=== PATIENT | male | born 1945 | race Caucasian/White ===

== ENCOUNTER 2019-04-08 00:15 | Inpatient (IN) | payer MEDICARE ==
[2019-04-08] MEDS ORDERED: hydrALAZINE 20 MG/ML VIAL SLOW IVP PRN (00:41)
[2019-04-08] MEDS ORDERED: Labetalol HCl 100 MG/20 ML VIAL SLOW IVP PRN (00:41)
[2019-04-08] MEDS ORDERED: Senokot S 8.6-50 MG TAB PO PRN (00:41)
[2019-04-08] MEDS ORDERED: HumaLOG 300 UNITS/3 ML VIAL SC PRN (00:46)
[2019-04-08] MEDS ORDERED: Dextrose 5% in Water 1,000 ML IV PRN (00:46)
[2019-04-08] MEDS ORDERED: Dextrose 50% Abboject 50 ML SYRINGE SLOW IVP PRN (00:46)
[2019-04-08] MEDS ORDERED: Aspirin 325 MG TAB PO SCH (01:00)
[2019-04-08] MEDS ORDERED: Clopidogrel Bisulfate 75 MG TAB PO SCH (01:00)
--- NOTE | 2019-04-08 02:03 | HP ---
PRESENTING COMPLAINT: Right sided arm and leg weakness. HISTORY OF PRESENT ILLNESS: Mr. Anisha Krishnan is a 73-year-old male with history of hypertension, SVT status post ablation 15 years ago, recent negative echocardiogram and stress test, who developed paresthesia and heaviness of the right leg area this morning about 15 hours before presentation. Symptoms initially resolved. The patient also noted he had difficulties with using his right arm to put the numbers in his phone. He was able to manage for most part of the day without worsening of the symptoms, but again continued to have worsening of symptoms this evening and presented to the ED. He denies any loss of consciousness, headache, or dizziness. He states his normal blood pressure normally runs in the 140s to 150s and was unchanged today. He had a CT done at an outside facility today with findings of incomplete stenoses with blockage of the anterior circulation. He was sent here for further management. The patient denies any weakness now . PAST MEDICAL HISTORY: Significant for hypertension, hyperlipidemia, and history of SVT status post ablation 15 years ago and history of prediabetes mellitus with recent hemoglobin A1c of 6.4. ALLERGIES: NO KNOWN DRUG ALLERGIES. FAMILY HISTORY: Significant for mother with history of CVA. SOCIAL HISTORY: The patient is a former smoker, quit about 30 years ago. No history of alcohol or illicit drug use. Fully functional at baseline. Resides in community with the . PAST SURGICAL HISTORY: Include cataract extraction as well as ablation of SVT. REVIEW OF SYSTEMS: System review x14 negative except as mentioned above. HOME MEDICATIONS: See full medication list. Awaiting confirmation in JUN. PHYSICAL EXAMINATION: VITAL SIGNS: Blood pressure of 166/70, pulse of 76, respiratory rate of 18, temperature afebrile, O2 saturation 96 on room air. GENERAL: Slightly overweight elderly male, not in any distress. HEENT: Head is atraumatic, normocephalic. The patient is typing numbers into his phone when I walked into the room. Pupils are equal and reactive to light. Anicteric. No facial asymmetry. No facial droop. Moist oral mucosa. NECK: No JVD. No carotid bruit. RESPIRATORY: Good air entry. No crepitation. CARDIOVASCULAR: S1, S2. Rate and rhythm regular. No murmur. GI: Abdomen full, soft. Bowel sounds positive. No organomegaly. EXTREMITIES: No pedal edema. No calf tenderness. NEURO: The patient is alert, conversant. Cranial nerves 2 through 12 grossly intact. Power is 5/5 in all extremities with no asymmetry. Deep tender reflexes equivocal bilaterally. No pronator drift elicited based on finger to nose as well as finger pointing was normal with this right arm, but slight tremors at precision point. LABORATORY DATA: Creatinine 1.75, glucose 254, potassium 4.0, hemoglobin 14.8, platelets 219. INR and PT normal. Images from office show CT of the brain as well as CT of the [place] done, full report pending. IMPRESSION: 1. Transient ischemic attack with mild cerebrovascular accident. 2. Hypertension. 3. Hyperlipidemia. 4. Diabetes mellitus, diet controlled. PLAN: We will admit the patient to the stroke unit. We will consult Neurology as well as Neurosurgery in a.m. We will obtain echocardiogram as well as carotid Doppler. Follow full results of CTA. We will schedule patient for MRI in the a.m. since CT of the head shows no acute infarct and CTA with area of reduced stenosis, would defer intervention of nonocclusive stenosis area to Neurology. We will start the patient on aspirin and Plavix at this time. We will also start Lipitor for presumed hyperlipidemia. Continue home regimen with lisinopril and fenofibrate. We will consult Nephrology for elevated creatinine. We will give Lovenox for DVT prophylaxis. The patient is currently full code. scar. We will consult PT and OT as well as Case Management for DC planning. Job ID: [id number]
[2019-04-08 02:32] VITALS: BMI 31.4
[2019-04-08 05:20] LABS: Cardiac Risk 4.7 (Less than 4.5)
--- NOTE | 2019-04-08 07:33 | ULT ---
US Carotid Doppler STANDARD History: Right-sided weakness. Hypertension. Comparison: None. Findings: Antegrade flow both vertebral arteries. No elevated peak systolic velocities within the int ernal carotid arteries. Impression: Findings and impression are concordant with the preliminary report.
[2019-04-08 08:23] LABS: Anion Gap 12 mmol/L (10-20); BUN (Urea Nitrogen) 17 mg/dL (8.4-25.7); Calc. Creatinine Clearance 76 mL/min (70-130); Calcium 8.7 mg/dL (7.8-10.44); Carbon Dioxide 20 mmol/L (23-31); Chloride 109 mmol/L (98-107); Estimated GFR-MDRD 55; Glucose 203 mg/dL (83-110); Potassium 3.7 mmol/L (3.5-5.1); Sodium 137 mmol/L (136-145)
[2019-04-08 08:45] LABS: Bacteria/HPF None Seen HPF (None Seen); Bilirubin Negative (Negative); Blood, Urine Negative (Negative); Clarity Clear (Clear); Glucose, Urine (Dipstick) Normal (Negative); Leukocyte Negative Leu/uL (Negative); Nitrite Negative (Negative); Protein, Urine (Dipstick) Negative (Neg-Trace); RBC/HPF 0-3 HPF (0-3); Squamous Epithelial None Seen HPF (0-3); Urobilinogen Normal mg/dL (Less than 2); WBC/HPF 0-3 HPF (0-3)
[2019-04-08] MEDS: Enoxaparin Sodium 30 MG/0.3 ML SYRINGE SC SCH (09:56)
[2019-04-08] MEDS: Famotidine 20 MG TAB PO SCH (09:56)
--- NOTE | 2019-04-08 10:07 | MRI ---
MRI BRAIN NONCONTRAST: DATE: 04/08/19 TIME: 0900 hours HISTORY: 73-year-old male with acute stroke. Right-sided weakness and abnormal gait, onset yesterday. COMPARISON: No prior MRIs. FINDINGS: There is a small focus of restricted diffusion involving the periventricular white matter abutting th e posterior body of the left lateral ventricle, measuring approximately 1 cm in size. There is associ ated minimal FLAIR hyperintensity in this location. Contiguous with this, there is milder subtle rest ricted diffusion located more inferiorly and more laterally at the posterior aspect of the left basal ganglia and posterior limb of left internal capsule, also with subtle, faint FLAIR hyperintensity. There are mild chronic ischemic white matter changes in the bilateral periventricular and deep cerebr al white matter, and also in the melva. There is a tiny old lacunar infarction in the right side of th e melva. No obstructive hydrocephalus, recent or remote intra-axial hemorrhage, mass effect, midline shift, or extra-axial fluid collection. Flow-voids are grossly maintained in the major arteries of the [place]. IMPRESSION: 1. Evidence for small acute infarction in the posterior aspect of the left corpus striatum. 2. Tiny old brainstem lacunar infarction at right side of melva. 3. Mild chronic ischemic white matter changes. JN Thierry POS: CET
--- NOTE | 2019-04-08 13:35 | CON ---
DATE OF CONSULTATION: 04/08/2019 CONSULTING PHYSICIAN: Hospitalist Service. IMPRESSION: 1. Probable lacunar stroke with minor right-sided weakness. 2. Aspirin failure. 3. Diabetes. 4. Hypertension. PLAN: 1. Add Plavix 75 mg per day. 2. Outpatient followup. HISTORY OF PRESENT ILLNESS: Mr. Lancaster is a 73-year-old gentleman, who came in with complaints of subtle weakness of the right hand and leg, started yesterday morning. There was no associated numbness. He denied having any slurred speech or difficulty swallowing. His symptoms improved a bit by yesterday evening. He was admitted for evaluation. A CT scan of the brain was unremarkable. He had a carotid Doppler study, which I reviewed and appears clear. CT angiogram of the head was also performed and the results are pending. He denies a history of any prior stroke symptoms. He is without any complaints of headache, nausea, vomiting, vertigo, double vision, blurred vision, or transient vision loss. He has no cardiac history other than an SVT. PAST MEDICAL HISTORY: 1. Hypertension. 2. Borderline diabetes. MEDICATION LIST: Reviewed. SOCIAL HISTORY: No tobacco use. REVIEW OF SYSTEMS: Ten-system review of systems is otherwise negative. ALLERGIES: NONE. PHYSICAL EXAMINATION: GENERAL: He is a healthy-appearing elderly gentleman, in no acute distress. VITAL SIGNS: Blood pressure 170/79, pulse 65, respirations 20, and temperature 97.9. HEENT: Pupils equal and reactive. Conjunctivae clear. Oropharynx clear. NECK: Supple. EXTREMITIES: No cyanosis, clubbing, or edema. NEUROLOGIC: He is alert and appropriate. His speech is fluent and clear. Cranial nerves are intact throughout. Motor exam showed good strength bilaterally. There is no fix or drift. No tremor or dysmetria was noted. Sensation was intact to touch. He could walk independently. LABORATORY STUDIES: Lipid ratio was 4.7. SUMMARY: A 73-year-old gentleman with a minor neurologic deficit on the right side, consistent with a lacunar stroke. I would add Plavix. His workup will be completed today and can be discharged at your discretion. Job ID: [id number]
[2019-04-08] MEDS: HumaLOG 300 UNITS/3 ML VIAL SC PRN ×2 (13:36→17:31)
[2019-04-08] MEDS: Aspirin 325 mg Enteric Coated Tablet PO SCH (13:37)
[2019-04-08] MEDS: Clopidogrel Bisulfate 75 MG TAB PO SCH (13:39)
--- NOTE | 2019-04-08 14:47 | PDOC.HOSPP ---
- Subjective Subjective: Doing ok. He has been up and around with PT. Still a little unsteady, but does not specifically feel weeks. Had a little issue with using his right hand for utensils, but seems to be better. - Objective Vital Signs & Weight: Vital Signs (12 hours) Temp Pulse Pulse Resp BP BP Pulse Ox 04/08/19 11:00 98.0 F 66 14 146/70 H 93 L 04/08/19 09:50 148/73 H 04/08/19 08:07 62 157/71 H 04/08/19 07:55 97.8 F 66 14 157/71 H 95 Weight Weight 225 lb I&O: 04/07/19 04/08/19 04/09/19 06:59 06:59 06:59 Intake Total 440 Output Total 325 Balance -325 440 Result Diagrams: 04/08/19 04:40 Additional Labs: Accuchecks 04/08/19 04/08/19 11:39 06:15 POC Glucose 215 H 188 H Hospitalist ROS - Medication Medications: Active Medications Generic Name Dose Route Start Last Admin Trade Name Dominguezq PRN Reason Stop Dose Admin Aspirin 325 mg 04/08/19 09:00 04/08/19 13:37 Ecotrin PO 325 mg DAILY CHARLIE Administration Clopidogrel Bisulfate 75 mg 04/08/19 09:00 04/08/19 13:39 Plavix PO Not Given DAILY CHARLIE Enoxaparin Sodium 30 mg 04/08/19 09:00 04/08/19 09:56 Lovenox SC 30 mg 0900 CHARLIE Administration Famotidine 20 mg 04/08/19 09:00 04/08/19 09:56 Pepcid PO 20 mg DAILY CHARLIE Administration Insulin Human Lispro 0 units 04/08/19 13:27 04/08/19 13:36 Humalog SC 3 unit .MILD SLIDING SCALE PRN Administration MILD SLIDING SCALE Protocol Sodium Chloride 10 ml 04/08/19 00:41 04/08/19 09:57 Flush - Normal Saline IVF 10 ml PRN PRN Administration Saline Flush - Exam General Appearance: NAD, awake alert Heart: RRR, no murmur, no gallops, no rubs, normal peripheral pulses Respiratory: CTAB, no wheezes, no rales, no ronchi, normal chest expansion, no tachypnea, normal percussion Gastrointestinal: soft, non-tender, non-distended, normal bowel sounds, no palpable masses, no hepatomegaly, no splenomegaly, no bruit Extremities: no cyanosis, no clubbing, no edema Skin: normal turgor Neurological - other findings: Extremely small strength deficit RUE. Musculoskeletal: normal tone, normal strength, no muscle wasting Hosp A/P (1) CVA (cerebral vascular accident) Code(s): I63.9 - CEREBRAL INFARCTION, UNSPECIFIED Status: Acute (2) HLD (hyperlipidemia) Code(s): E78.5 - HYPERLIPIDEMIA, UNSPECIFIED Status: Acute (3) HTN (hypertension) Code(s): I10 - ESSENTIAL (PRIMARY) HYPERTENSION Status: Acute - Plan Doing well. Good prognosis for recovery. Had ASA and Plavix late last night. Repeating ASA today. Dr. Bazan indicated he recommends adding Plavix. Anticipate discharge in the morning on Atorvastatin, ASA 81 mg and Plavix 75 mg. He can do OP PT as needed.
--- NOTE | 2019-04-08 15:21 | CON ---
DATE OF CONSULTATION: HISTORY OF PRESENT ILLNESS: Mr. Lancaster is a 73-year-old white male, who was admitted for right-sided arm and leg weakness. He was said to have undergone a CT angio and it showed no significant carotid artery stenosis. He has a scheduled MRA/MRI of the head. Reading the note by the hospitalist, it is reported that CT angio had an area of reduced stenosis. He has been started on aspirin and Plavix. He was also initially noted to have an elevated creatinine of 1.75 mg%. I did recheck the creatinine this morning, it is much improved. His right-sided weakness is actually much improved. REVIEW OF SYSTEMS: Positive for right-sided weakness. No nausea. No vomiting. No chest pain. No headache. No diplopia. No productive cough. No fever or chills. Appetite and energy level are fair. No hematochezia. No dysuria. No abdominal pain. HOME MEDICATIONS: Included the followin. Tolterodine 4 mg daily. 2. Lisinopril, dose unknown, one tablet daily. 3. Finasteride one tablet daily. 4. Fenofibrate 54 mg once a day. 5. Lexapro 10 mg once a day. 6. Aspirin 81 mg tablet once a day. Current hospital medications include: 1. Aspirin 325 mg once a day. 2. Atorvastatin 40 mg at bedtime. 3. Clopidogrel 75 mg once a day. 4. Lovenox 30 mg subcu daily. 5. Labetalol 20 mg IV q.1 p.r.n. 6. Hydralazine 10 mg IV q.4 p.r.n. PAST MEDICAL HISTORY: 1. Hypertension. 2. Hyperlipidemia. 3. BPH, status post SVT. 4. Right shoulder tendon injury. PAST SURGICAL HISTORY: Status post cardiac ablation, status post cardiac cath, status post right shoulder surgery, status post anal fistulectomy, status post colonoscopy, status post bilateral cataract surgery. SOCIAL HISTORY: The patient is , lives in [place], 3 children. Smoked for 15 years, one-fourth pack a day. Occasional beer. 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 Education, college graduate. No IV drug abuse. No blood transfusion. ALLERGIES: NONE. TRAUMA: Status post right collar bone fracture. IMMUNIZATION: Up-to-date. HOSPITALIZATIONS: Please see past medical history. PHYSICAL EXAMINATION: VITAL SIGNS: Blood pressure is 157/71, heart rate 66, respiratory rate 14, temperature 97.8, pulse ox 95%. GENERAL: Noted to be awake, alert, comfortable, not in overt distress. SKIN: Adequate turgor. HEENT: Pinkish conjunctivae, anicteric sclerae. NECK: No neck mass. No carotid bruits. No JVD. CHEST: No deformities. LUNGS: Clear breath sounds. No wheezing. No crackles. HEART: Normal sinus rhythm. No murmur. No gallops. No rubs. ABDOMEN: Globular, soft, nontender. No masses. EXTREMITIES: No edema, no deformities. NEUROLOGIC: Moving all extremities. No tremors. No asterixis. No ataxia. LABORATORY DATA: April 07, 2019, white count 5.3, hemoglobin 14.8. April 07, 2019, BUN 19, creatinine 1.75. April 08, 2019, sodium 137, potassium 3.7, chloride 109, carbon dioxide 20, BUN 17, creatinine 1.28, glucose 203, calcium 8.7. April 08, 2019, Carotid Doppler findings are within normal. CTA of the head with intravenous contrast shows the intracranial ICAs are patent with no significant stenosis-no occlusion, no aneurysm. Anterior cerebral artery shows no significant stenosis, no occlusion, no aneurysm. In the middle cerebral arteries, there is a patchy short-segment incomplete occlusion of the proximal left M2 segmental branches reflecting ? Of a small thromboemboli. Posterior cerebellar, basilar, and vertebral artery show no significant stenosis. ASSESSMENT AND PLAN: 1. Acute kidney injury - consider hemodynamically-mediated renal dysfunction. Please note, renal function is actually much improved with just observation and increasing p.o. intake with this patient. We will simply observe this patient. There is no indication for any dialytic intervention. 2. CTA of the brain showed finding of an incomplete occlusion of the proximal left M2 segmental branches -? of a small thromboemboli. Please note, an MRA/MRI has been ordered by the PCP. Continue supportive care. 3. Agree with current management. We will recheck basic metabolic profile and CBC in a.m. agree to hold off lisinopril. Job ID: [id number]
[2019-04-08] MEDS: Atorvastatin Calcium 40 MG TAB PO SCH (21:32)
[2019-04-09 04:51] LABS: #Eosinphils 0.2 thou/uL (0.0-0.7); #Lymphocytes 1.2 thou/uL (1.20-3.40); #Monocytes 0.6 thou/uL (0.11-0.59); #Neutrophils 3.7 thou/uL (1.40-6.50); %Basophils 0.6 % (0.0-1.0); %Eosinophils 3.6 % (0.0-10.0); %Lymphocytes 21.7 % (21.0-51.0); %Monocytes 9.9 % (0.0-10.0); %Neutrophils 64.1 % (42.0-75.0); Hemoglobin 15.1 g/dL (14.0-18.0); Mean Corpuscular HGB CONC 35.7 g/dL (32.0-36.0); Mean Corpuscular Hemoglobin 30.7 pg (27.0-31.0); Mean Corpuscular Volume 86.1 fL (78.0-98.0); Mean Platelet Volume 7.4 fL (7.4-10.4); Platelet Count 211 thou/uL (130-400); RBC Distribution Width 12.5 % (11.5-14.5); Red Blood Cell (RBC) Count 4.91 mill/uL (4.70-6.10); White Blood Cell (WBC) Count 5.7 thou/uL (4.8-10.8)
[2019-04-09 05:17] LABS: Anion Gap 12 mmol/L (10-20); BUN (Urea Nitrogen) 14 mg/dL (8.4-25.7); Calc. Creatinine Clearance 95 mL/min (70-130); Calcium 9.1 mg/dL (7.8-10.44); Carbon Dioxide 20 mmol/L (23-31); Chloride 110 mmol/L (98-107); Estimated GFR-MDRD 71; Glucose 167 mg/dL (83-110); Potassium 3.6 mmol/L (3.5-5.1); Sodium 138 mmol/L (136-145)
[2019-04-09] MEDS: HumaLOG 300 UNITS/3 ML VIAL SC PRN ×2 (06:45→11:30)
--- NOTE | 2019-04-09 08:33 | CT ---
Exam: CT brain PROVIDED CLINICAL HISTORY: Right-sided weakness COMPARISON: 04/07/2019 FINDINGS: The ventricular system is normal in size and morphology. No evidence for intracranial hemorrhage or mass effect. The extracranial soft tissues and osseous structures demonstrate no evidence for an acute abnormality. IMPRESSION: No evidence for intracranial hemorrhage or mass effect.
[2019-04-09] MEDS ORDERED: Lisinopril 20 MG TAB PO SCH (09:00)
[2019-04-09] MEDS: Aspirin 325 mg Enteric Coated Tablet PO SCH (09:24)
[2019-04-09] MEDS: Escitalopram Oxalate 10 mg Tablet PO SCH (09:25)
[2019-04-09] MEDS: Fenofibrate 48 MG TAB PO SCH (09:25)
[2019-04-09] MEDS: Finasteride 5 MG TAB PO SCH (09:25)
[2019-04-09] MEDS: Clopidogrel Bisulfate 75 MG TAB PO SCH (09:25)
[2019-04-09] MEDS: Trospium 20 MG TAB PO SCH ×2 (09:25→20:41)
[2019-04-09] MEDS: Enoxaparin Sodium 30 MG/0.3 ML SYRINGE SC SCH (09:25)
[2019-04-09] MEDS: Famotidine 20 MG TAB PO SCH (09:25)
[2019-04-09] MEDS ORDERED: Clopidogrel Bisulfate 75 MG TAB PO SCH (16:30)
--- NOTE | 2019-04-09 16:32 | PDOC.HOSPP ---
- Subjective Encounter Date: 04/09/19 Encounter Time: 16:31 Subjective: The patient states yesterday he did well with PT and was cleared to go home. Today however he reports worsening right sided weakness and slurred speech. He states he is unable to lift up his right arm today. He denies chest pain or short of breath. His symptoms worsen when he stands up. - Objective Vital Signs & Weight: Vital Signs (12 hours) Temp Pulse Resp BP Pulse Ox 04/09/19 15:48 98.0 F 70 16 181/80 H 94 L 04/09/19 11:43 98.8 F 65 18 157/77 H 93 L 04/09/19 07:54 98.0 F 65 16 168/77 H 94 L Weight Weight 225 lb I&O: 04/08/19 04/09/19 04/10/19 06:59 06:59 06:59 Intake Total 680 150 Output Total 325 Balance -325 680 150 Result Diagrams: 04/09/19 04:36 04/09/19 04:36 Additional Labs: Accuchecks 04/09/19 04/09/19 04/08/19 10:29 05:53 20:19 POC Glucose 233 H 169 H 178 H 04/08/19 17:15 POC Glucose 150 H Hospitalist ROS - Review of Systems Constitutional: denies: fever, chills Respiratory: denies: cough, shortness of breath Cardiovascular: denies: chest pain, palpitations, orthopnea Gastrointestinal: denies: nausea, vomiting, abdominal pain - Medication Medications: Active Medications Generic Name Dose Route Start Last Admin Trade Name Freq PRN Reason Stop Dose Admin Atorvastatin Calcium 40 mg 04/08/19 21:00 04/08/19 21:32 Lipitor PO 40 mg HS CHARLIE Administration Clopidogrel Bisulfate 75 mg 04/08/19 09:00 04/09/19 09:25 Plavix PO 75 mg DAILY CHARLIE Administration Escitalopram Oxalate 10 mg 04/09/19 09:00 04/09/19 09:25 Lexapro PO 10 mg DAILY CHARLIE Administration Famotidine 20 mg 04/08/19 09:00 04/09/19 09:25 Pepcid PO 20 mg DAILY CHARLIE Administration Fenofibrate 48 mg 04/09/19 09:00 04/09/19 09:25 Tricor PO 48 mg DAILY CHARLIE Administration Finasteride 5 mg 04/09/19 09:00 04/09/19 09:25 Proscar PO 5 mg DAILY CHARLIE Administration Insulin Human Lispro 0 units 04/08/19 13:27 04/09/19 11:30 Humalog SC 3 unit .MILD SLIDING SCALE PRN Administration MILD SLIDING SCALE Protocol Sodium Chloride 10 ml 04/08/19 00:41 04/08/19 09:57 Flush - Normal Saline IVF 10 ml PRN PRN Administration Saline Flush Trospium 20 mg 04/09/19 09:00 04/09/19 09:25 Trospium PO 20 mg BID CHARLIE Administration - Exam General Appearance: NAD, awake alert Eye: PERRL, anicteric sclera ENT: normocephalic atraumatic, no oropharyngeal lesions Neck: supple, symmetric, no JVD, no thyromegaly Heart: RRR, no murmur, no gallops, no rubs Respiratory: CTAB, no wheezes, no rales, no ronchi Gastrointestinal: soft, non-tender, non-distended Extremities: no cyanosis, no clubbing, no edema Skin: normal turgor, no lesions, no rashes Neurological - other findings: Right sided facial droop, weakness right facial muscle Musculoskeletal - other findings: Patient unable to lift up right leg or right arm, 5/5 strength LUE and LLE Psychiatric: normal affect, normal behavior, A&O x 3 Hosp A/P - Plan MRI brain: patient with acute infarct left corpus striatum, lacunar infarct right melva, chronic ischemic white matter changes Carotid doppler: no significant stenosis CTA: left M2 patchy filling CT brain: negative ECHO: mild LVH, EF 55-60%, moderate MR, mild TR This is a 73 year old male with past medical history of hypertension who 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 CTA showed left M2 patchy filling consistent with possible thromboemboli. Out of window for thrombectomy. ECHO showed no thrombus. Will repeat MRI brain - per neurology, treat blood pressure only if > 190. Hold lisinopril for now. - will administer extra loading dose of plavix 150 mg per neurology. Continue plavix 75 mg, aspirin will reduce to 81 mg - hold lovenox for now due to high BP - continue atorvastatin. Also on fenofibrate, will check LFTS and CK level Depression - lexapro BPH - finasteride DVT prophylaxis: hold due to high BP Code status: full code
--- NOTE | 2019-04-09 17:35 | MRI ---
MRI OF BRAIN PERFORMED WITHOUT CONTRAST ENHANCEMENT: 04/09/19 HISTORY: Right sided weakness. Unable to move right arm and legs. Slurred speech. Worsening symptoms. COMPARISON: Prior day's exam. There is motion artifact present. There is generalized ventricular and sulcal prominence. There is in creased T2 and FLAIR signal change within the white matter. The focus of restricted diffusion is now more prominent within the left periventricular white matter and posterior limb of the internal capsul e. No mass effect or hemorrhage. IMPRESSION: Fully minimal overall increase in prominence to the area of infarct in the left periventricular white matter. No hemorrhage or other findings. Incidental note is once again made of an old lacunar infarc t in the melva region. POS: VIRGILIO
[2019-04-09 19:33] LABS: ALT (SGPT) 12 U/L (8-55); AST (SGOT) 14 U/L (5-34); Albumin 4.1 g/dL (3.4-4.8); Alkaline Phosphatase 58 U/L (40-110); Bilirubin, Direct 0.3 mg/dL (0.1-0.3); Protein, Total 6.9 g/dL (5.8-8.1)
[2019-04-09 19:45] LABS: CK (CPK) 69 U/L (30-200)
[2019-04-09] MEDS: Atorvastatin Calcium 40 MG TAB PO SCH (20:41)
[2019-04-10 04:56] LABS: Hemoglobin 15.4 g/dL (14.0-18.0); Mean Corpuscular HGB CONC 35.3 g/dL (32.0-36.0); Mean Corpuscular Hemoglobin 30.8 pg (27.0-31.0); Mean Corpuscular Volume 87.1 fL (78.0-98.0); Mean Platelet Volume 7.2 fL (7.4-10.4); Platelet Count 199 thou/uL (130-400); RBC Distribution Width 12.5 % (11.5-14.5); Red Blood Cell (RBC) Count 5.01 mill/uL (4.70-6.10); White Blood Cell (WBC) Count 6.3 thou/uL (4.8-10.8)
[2019-04-10 05:17] LABS: ALT (SGPT) 11 U/L (8-55); AST (SGOT) 12 U/L (5-34); Albumin 3.9 g/dL (3.4-4.8); Alkaline Phosphatase 53 U/L (40-110); Anion Gap 14 mmol/L (10-20); BUN (Urea Nitrogen) 12 mg/dL (8.4-25.7); Bilirubin, Total 1.2 mg/dL (0.2-1.2); Calc. Creatinine Clearance 92 mL/min (70-130); Calcium 9.1 mg/dL (7.8-10.44); Carbon Dioxide 22 mmol/L (23-31); Chloride 108 mmol/L (98-107); Estimated GFR-MDRD 69; Globulin 2.7 g/dL (2.4-3.5); Glucose 154 mg/dL (83-110); Potassium 3.5 mmol/L (3.5-5.1); Protein, Total 6.6 g/dL (5.8-8.1); Sodium 140 mmol/L (136-145)
[2019-04-10] MEDS: Trospium 20 MG TAB PO SCH ×2 (08:42→20:49)
[2019-04-10] MEDS: Aspirin 81 mg Enteric Coated Tablet PO SCH (08:42)
[2019-04-10] MEDS: Finasteride 5 MG TAB PO SCH (08:42)
[2019-04-10] MEDS: Fenofibrate 48 MG TAB PO SCH (08:43)
[2019-04-10] MEDS: Escitalopram Oxalate 10 mg Tablet PO SCH (08:43)
[2019-04-10] MEDS: Clopidogrel Bisulfate 75 MG TAB PO SCH (08:43)
[2019-04-10] MEDS: Famotidine 20 MG TAB PO SCH ×2 (08:43→20:50)
[2019-04-10] MEDS ORDERED: Lisinopril 10 MG TAB PO SCH (09:30)
[2019-04-10 10:46] LABS: Hemoglobin A1c 7.1 % (4.0-6.0)
--- NOTE | 2019-04-10 11:03 | PDOC.HOSPP ---
- Subjective Encounter Date: 04/10/19 Encounter Time: 09:15 Subjective: The patient is doing better. Yesterday MRI showed evolving stroke involving internal capsule. Patient got loading dose of plavix. He says he is now able to move his right leg if he lays down, but still can't move his right arm much. His swallowing has improved some. He is taking small bites. - Objective Vital Signs & Weight: Vital Signs (12 hours) Temp Pulse Resp BP BP Pulse Ox 04/10/19 10:38 122/91 H 04/10/19 08:49 158/73 H 04/10/19 07:44 98 F 69 16 189/89 H 95 04/10/19 04:00 98.5 F 66 16 135/63 95 04/09/19 23:31 98.6 F 68 18 188/88 H 98 Weight Weight 225 lb I&O: 04/09/19 04/10/19 04/11/19 06:59 06:59 06:59 Intake Total 680 860 Output Total 200 Balance 680 660 Result Diagrams: 04/10/19 04:38 04/10/19 04:38 Additional Labs: Accuchecks 04/10/19 04/10/19 04/09/19 10:49 05:54 20:42 POC Glucose 166 H 153 H 134 H 04/09/19 17:04 POC Glucose 141 H Hospitalist ROS - Review of Systems Constitutional: denies: fever, chills ENT: denies: ear pain Respiratory: denies: cough, dry Cardiovascular: denies: chest pain Genitourinary: denies: dysuria - Medication Medications: Active Medications Generic Name Dose Route Start Last Admin Trade Name Destini PRN Reason Stop Dose Admin Aspirin 81 mg 04/10/19 09:00 04/10/19 08:42 Ecotrin PO 81 mg DAILY CHARLIE Administration Atorvastatin Calcium 40 mg 04/08/19 21:00 04/09/19 20:41 Lipitor PO 40 mg HS CHARLIE Administration Clopidogrel Bisulfate 75 mg 04/08/19 09:00 04/10/19 08:43 Plavix PO 75 mg DAILY CHARLIE Administration Escitalopram Oxalate 10 mg 04/09/19 09:00 04/10/19 08:43 Lexapro PO 10 mg DAILY CHARLIE Administration Famotidine 20 mg 04/10/19 09:00 04/10/19 08:43 Pepcid PO 20 mg BID CHARLIE Administration Fenofibrate 48 mg 04/09/19 09:00 04/10/19 08:43 Tricor PO 48 mg DAILY CHARLIE Administration Finasteride 5 mg 04/09/19 09:00 04/10/19 08:42 Proscar PO 5 mg DAILY CHARLIE Administration Insulin Human Lispro 0 units 04/08/19 13:27 04/09/19 11:30 Humalog SC 3 unit .MILD SLIDING SCALE PRN Administration MILD SLIDING SCALE Protocol Lisinopril 10 mg 04/10/19 09:30 04/10/19 10:38 Zestril PO 04/10/19 11:30 10 mg NOW CHARLIE Administration Sodium Chloride 10 ml 04/08/19 00:41 04/08/19 09:57 Flush - Normal Saline IVF 10 ml PRN PRN Administration Saline Flush Trospium 20 mg 04/09/19 09:00 04/10/19 08:42 Trospium PO 20 mg BID CHARLIE Administration - Exam General Appearance: NAD, awake alert Eye: PERRL, anicteric sclera ENT: normocephalic atraumatic, no oropharyngeal lesions Neck: supple, symmetric, no JVD, no thyromegaly Heart: RRR, no murmur, no gallops, no rubs Respiratory: CTAB, no wheezes, no rales, no ronchi Gastrointestinal: soft, non-tender, non-distended, normal bowel sounds Extremities: no cyanosis, no clubbing, no edema Skin: normal turgor, no lesions, no rashes Neurological: cranial nerve grossly intact, normal sensation to touch, facial droop Neurological - other findings: right facial droop, LUE/LLE 5/5, RUE 0/5, RLE 4/ 5 Musculoskeletal: normal tone, normal strength, no muscle wasting Psychiatric: normal affect, normal behavior, A&O x 3, oriented to person Hosp A/P - Plan MRI brain: patient with acute infarct left corpus striatum, lacunar infarct right melva, chronic ischemic white matter changes Carotid doppler: no significant stenosis CTA: left M2 patchy filling CT brain: negative ECHO: mild LVH, EF 55-60%, moderate MR, mild TR MRI Brain 04/09/19: minimal overall increase in prominence to area of infarct in left periventricular white matter and posterior limb of internal capsule This is a 73 year old male with past medical history of hypertension who 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 CTA showed left M2 patchy filling consistent with possible thromboemboli. Out of window for thrombectomy. ECHO showed no thrombus. Repeat MRI brain showed increase in prominence to area of infarct in left periventricular white matter and posterior limb of internal capsule - will start lisinopril 10 mg to keep BP < 160 - continue plavix 75 mg, aspirin 81 mg, atorvastatin. LDL 92 - LFTs and CK level normal - likely needs inpatient rehab. Appreciate PT/OT/Speech evaluation Type II diabetes - Hb A1C of 7 - continue insulin sliding scale - metformin on discharge Depression - lexapro BPH - finasteride DVT prophylaxis: ambulation, can start heparin SC Code status: full code
[2019-04-10] MEDS: HumaLOG 300 UNITS/3 ML VIAL SC PRN (13:56)
[2019-04-10] MEDS: Heparin 5,000 UNITS/ML VIAL SC SCH ×2 (15:40→20:50)
[2019-04-10] MEDS: Atorvastatin Calcium 40 MG TAB PO SCH (20:49)
[2019-04-11 05:29] LABS: Anion Gap 12 mmol/L (10-20); BUN (Urea Nitrogen) 15 mg/dL (8.4-25.7); Calc. Creatinine Clearance 92 mL/min (70-130); Carbon Dioxide 23 mmol/L (23-31); Chloride 108 mmol/L (98-107); Estimated GFR-MDRD 69; Glucose 146 mg/dL (83-110); Potassium 3.6 mmol/L (3.5-5.1); Sodium 139 mmol/L (136-145)
[2019-04-11] MEDS: Finasteride 5 MG TAB PO SCH (09:42)
[2019-04-11] MEDS: Famotidine 20 MG TAB PO SCH ×2 (09:42→20:52)
[2019-04-11] MEDS: Trospium 20 MG TAB PO SCH ×2 (09:42→20:52)
[2019-04-11] MEDS: Aspirin 81 mg Enteric Coated Tablet PO SCH (09:43)
[2019-04-11] MEDS: Lisinopril 10 MG TAB PO SCH (09:43)
[2019-04-11] MEDS: Escitalopram Oxalate 10 mg Tablet PO SCH (09:43)
[2019-04-11] MEDS: Heparin 5,000 UNITS/ML VIAL SC SCH ×3 (09:44→20:52)
[2019-04-11] MEDS: Fenofibrate 48 MG TAB PO SCH (09:44)
[2019-04-11] MEDS: Clopidogrel Bisulfate 75 MG TAB PO SCH (09:44)
[2019-04-11 13:10] LABS: ANA Symphony (Qualitative) Negative (Negative); ANA Symphony (Quantitative) 0.1 Ratio (< 0.7 Negative); dsDNA IgG Antibody Less than 0.5 IU/mL (<10 Negative)
--- NOTE | 2019-04-11 17:09 | PDOC.HOSPP ---
- Subjective Encounter Date: 04/11/19 Encounter Time: 14:00 Subjective: The patient states he is doing slightly better. His right leg he is able to move more than his right arm. He states his speech got slurred from talking too much to his family so he advised his family not to come today. He denies dizziness or headaches He is interested in rehab in the [facility]. - Objective Vital Signs & Weight: Vital Signs (12 hours) Temp Pulse Pulse Pulse Resp BP BP 04/11/19 15:31 98.6 F 75 18 04/11/19 15:12 83 75 192/86 H 04/11/19 11:52 98.8 F 72 18 04/11/19 09:43 152/67 H 04/11/19 09:40 74 152/67 H 04/11/19 07:37 99.0 F 75 18 BP BP Pulse Ox 04/11/19 15:31 176/77 H 99 04/11/19 15:12 176/77 H 04/11/19 11:52 139/67 96 04/11/19 09:43 04/11/19 09:40 04/11/19 07:37 149/70 H 96 Weight Weight 225 lb I&O: 04/10/19 04/11/19 04/12/19 06:59 06:59 06:59 Intake Total 860 640 480 Output Total 200 100 Balance 660 540 480 Result Diagrams: 04/10/19 04:38 04/11/19 04:52 Additional Labs: Accuchecks 04/11/19 04/11/19 04/10/19 10:27 05:40 20:21 POC Glucose 139 H 144 H 163 H 04/10/19 17:33 POC Glucose 125 H Hospitalist ROS - Review of Systems Constitutional: denies: fever, chills Eyes: denies: pain ENT: denies: ear pain Respiratory: denies: dry, pleuritic pain - Medication Medications: Active Medications Generic Name Dose Route Start Last Admin Trade Name Freq PRN Reason Stop Dose Admin Aspirin 81 mg 04/10/19 09:00 04/11/19 09:43 Ecotrin PO 81 mg DAILY CHARLIE Administration Atorvastatin Calcium 40 mg 04/08/19 21:00 04/10/19 20:49 Lipitor PO 40 mg HS CHARLIE Administration Clopidogrel Bisulfate 75 mg 04/08/19 09:00 04/11/19 09:44 Plavix PO 75 mg DAILY CHARLIE Administration Escitalopram Oxalate 10 mg 04/09/19 09:00 04/11/19 09:43 Lexapro PO 10 mg DAILY CHARLIE Administration Famotidine 20 mg 04/10/19 09:00 04/11/19 09:42 Pepcid PO 20 mg BID CHARLIE Administration Fenofibrate 48 mg 04/09/19 09:00 04/11/19 09:44 Tricor PO 48 mg DAILY CHARLIE Administration Finasteride 5 mg 04/09/19 09:00 04/11/19 09:42 Proscar PO 5 mg DAILY CHARLIE Administration Heparin Sodium (Porcine) 5,000 units 04/10/19 15:00 04/11/19 15:36 Heparin SC 5,000 units TID CHARLIE Administration Insulin Human Lispro 0 units 04/08/19 13:27 04/10/19 13:56 Humalog SC 2 unit .MILD SLIDING SCALE PRN Administration MILD SLIDING SCALE Protocol Lisinopril 10 mg 04/11/19 09:00 04/11/19 09:43 Zestril PO 10 mg DAILY CHARLIE Administration Sodium Chloride 10 ml 04/08/19 00:41 04/11/19 09:44 Flush - Normal Saline IVF 10 ml PRN PRN Administration Saline Flush Trospium 20 mg 04/09/19 09:00 04/11/19 09:42 Trospium PO 20 mg BID CHARLIE Administration - Exam General Appearance: NAD, awake alert Eye: PERRL, anicteric sclera ENT: normocephalic atraumatic, no oropharyngeal lesions Neck: supple, symmetric, no JVD, no thyromegaly Heart: RRR, no murmur, no gallops, no rubs Respiratory: CTAB, no wheezes, no rales, no ronchi Gastrointestinal: soft, non-tender, non-distended, normal bowel sounds Extremities: no cyanosis, no clubbing, no edema Skin: normal turgor, no lesions, no rashes Neurological: normal sensation to touch, no focal deficits, no new deficit, facial droop (right side), vision deficit Neurological - other findings: patient has 4/5 strength RLE, 0/5 strength RUE Musculoskeletal: normal tone, normal strength, no muscle wasting Psychiatric: normal affect, normal behavior, A&O x 3 Hosp A/P - Plan MRI brain: patient with acute infarct left corpus striatum, lacunar infarct right melva, chronic ischemic white matter changes Carotid doppler: no significant stenosis CTA: left M2 patchy filling CT brain: negative ECHO: mild LVH, EF 55-60%, moderate MR, mild TR MRI Brain 04/09/19: minimal overall increase in prominence to area of infarct in left periventricular white matter and posterior limb of internal capsule This is a 73 year old male with past medical history of hypertension who presented with acute stroke Acute Left corpus striatum stroke - CT head negative, MRI brain showed acute infarct left corpus striatum, repeat 04/09 showed slight increase in area of infarct - continue aspirin and plavix. Patient was given additional loading dose of plavix 150 mg on 04/09 - continue lisinopril 10 mg daily, add amlodipine 5 mg given BP still 170 - LDL 92, A1C 7, TSH normal - PT/OT/Speech following - referrals sent for rehab Type II diabetes - Hb A1C of 7 - continue insulin sliding scale - metformin on discharge Depression - lexapro BPH - finasteride Disposition: needs rehab DVT prophylaxis: heparin SC Code status: full code
[2019-04-11] MEDS ORDERED: Amlodipine 5 MG TAB PO SCH (17:30)
[2019-04-11] MEDS: Atorvastatin Calcium 40 MG TAB PO SCH (20:52)
[2019-04-12 04:50] LABS: Hemoglobin 15.2 g/dL (14.0-18.0); Mean Corpuscular HGB CONC 35.3 g/dL (32.0-36.0); Mean Corpuscular Hemoglobin 30.9 pg (27.0-31.0); Mean Corpuscular Volume 87.6 fL (78.0-98.0); Mean Platelet Volume 7.4 fL (7.4-10.4); Platelet Count 204 thou/uL (130-400); RBC Distribution Width 12.6 % (11.5-14.5); Red Blood Cell (RBC) Count 4.92 mill/uL (4.70-6.10); White Blood Cell (WBC) Count 5.9 thou/uL (4.8-10.8)
[2019-04-12 05:07] LABS: Anion Gap 11 mmol/L (10-20); BUN (Urea Nitrogen) 19 mg/dL (8.4-25.7); Calc. Creatinine Clearance 96 mL/min (70-130); Calcium 8.9 mg/dL (7.8-10.44); Carbon Dioxide 21 mmol/L (23-31); Chloride 109 mmol/L (98-107); Estimated GFR-MDRD 72; Glucose 145 mg/dL (83-110); Potassium 3.7 mmol/L (3.5-5.1); Sodium 137 mmol/L (136-145)
[2019-04-12] MEDS: HumaLOG 300 UNITS/3 ML VIAL SC PRN ×2 (06:19→12:07)
[2019-04-12] MEDS: Trospium 20 MG TAB PO SCH ×2 (09:29→20:55)
[2019-04-12] MEDS: Famotidine 20 MG TAB PO SCH ×2 (09:29→20:54)
[2019-04-12] MEDS: Aspirin 81 mg Enteric Coated Tablet PO SCH (09:29)
[2019-04-12] MEDS: Finasteride 5 MG TAB PO SCH (09:30)
[2019-04-12] MEDS: Lisinopril 10 MG TAB PO SCH (09:30)
[2019-04-12] MEDS: Escitalopram Oxalate 10 mg Tablet PO SCH (09:30)
[2019-04-12] MEDS: Amlodipine 5 MG TAB PO SCH (09:30)
[2019-04-12] MEDS: Fenofibrate 48 MG TAB PO SCH (09:30)
[2019-04-12] MEDS: Clopidogrel Bisulfate 75 MG TAB PO SCH (09:30)
[2019-04-12] MEDS: Heparin 5,000 UNITS/ML VIAL SC SCH ×3 (09:32→20:55)
[2019-04-12] MEDS: Cyclobenzaprine 10 MG TAB PO PRN (16:55)
[2019-04-12] MEDS ORDERED: Lidocaine 5% Patch TD SCH (17:00)
--- NOTE | 2019-04-12 19:07 | PDOC.HOSPP ---
- Subjective Encounter Date: 04/12/19 Encounter Time: 16:00 Subjective: The patient is doing better. He has muscle spasms in his right arm and leg that happen more at night. He is only able to move his right leg while laying down, but still can't lift up his right arm. Speech is better, does have some drooling on right face while eating No bed at rehab yet BP better controlled today - Objective Vital Signs & Weight: Vital Signs (12 hours) Temp Pulse Pulse Pulse Resp BP BP 04/12/19 15:45 98.4 F 78 14 04/12/19 11:49 98.0 F 78 14 04/12/19 09:50 81 71 152/76 H 04/12/19 09:30 68 124/61 04/12/19 07:49 98.5 F 68 12 BP BP Pulse Ox 04/12/19 15:45 129/59 L 96 04/12/19 11:49 145/69 H 95 04/12/19 09:50 149/70 H 04/12/19 09:30 04/12/19 07:49 113/59 L 95 Weight Weight 225 lb I&O: 04/11/19 04/12/19 04/13/19 06:59 06:59 06:59 Intake Total 640 1190 960 Output Total 100 650 Balance 540 540 960 Result Diagrams: 04/12/19 04:20 04/12/19 04:20 Additional Labs: Accuchecks 04/12/19 04/12/19 04/12/19 17:33 10:41 05:14 POC Glucose 135 H 172 H 170 H 04/11/19 21:07 POC Glucose 195 H Hospitalist ROS - Review of Systems Constitutional: denies: fever, chills Respiratory: denies: cough, dry, shortness of breath - Medication Medications: Active Medications Generic Name Dose Route Start Last Admin Trade Name Freq PRN Reason Stop Dose Admin Amlodipine Besylate 5 mg 04/12/19 09:00 04/12/19 09:30 Norvasc PO 5 mg DAILY CHARLIE Administration Aspirin 81 mg 04/10/19 09:00 04/12/19 09:29 Ecotrin PO 81 mg DAILY CHARLIE Administration Atorvastatin Calcium 40 mg 04/08/19 21:00 04/11/19 20:52 Lipitor PO 40 mg HS CHARLIE Administration Clopidogrel Bisulfate 75 mg 04/08/19 09:00 04/12/19 09:30 Plavix PO 75 mg DAILY CHARLIE Administration Cyclobenzaprine HCl 5 mg 04/12/19 16:15 04/12/19 16:55 Flexeril PO 5 mg BIDPRN PRN Administration Muscle Spasm Escitalopram Oxalate 10 mg 04/09/19 09:00 04/12/19 09:30 Lexapro PO 10 mg DAILY CHARLIE Administration Famotidine 20 mg 04/10/19 09:00 04/12/19 09:29 Pepcid PO 20 mg BID CHARLIE Administration Fenofibrate 48 mg 04/09/19 09:00 04/12/19 09:30 Tricor PO 48 mg DAILY CHARLIE Administration Finasteride 5 mg 04/09/19 09:00 04/12/19 09:30 Proscar PO 5 mg DAILY CHARLIE Administration Heparin Sodium (Porcine) 5,000 units 04/10/19 15:00 04/12/19 15:28 Heparin SC 5,000 units TID CHARLIE Administration Insulin Human Lispro 0 units 04/08/19 13:27 04/12/19 12:07 Humalog SC 2 unit .MILD SLIDING SCALE PRN Administration MILD SLIDING SCALE Protocol Lisinopril 10 mg 04/11/19 09:00 04/12/19 09:30 Zestril PO 10 mg DAILY CHARLIE Administration Sodium Chloride 10 ml 04/08/19 00:41 04/12/19 09:31 Flush - Normal Saline IVF 10 ml PRN PRN Administration Saline Flush Trospium 20 mg 04/09/19 09:00 04/12/19 09:29 Trospium PO 20 mg BID CHARLIE Administration - Exam General Appearance: NAD, awake alert Eye: PERRL, anicteric sclera ENT: normocephalic atraumatic, no oropharyngeal lesions Neck: supple, symmetric, no JVD, no thyromegaly Heart: RRR, no murmur, no gallops, no rubs Respiratory: CTAB, no wheezes, no rales, no ronchi Gastrointestinal: soft, non-tender, non-distended Extremities: no cyanosis, no clubbing, no edema Skin: normal turgor, no lesions, no rashes Neurological: cranial nerve grossly intact Neurological - other findings: right sided facial droop, RUE weakness, RLE weakness improved Musculoskeletal - other findings: RUE 0/5, RLE 4/5, LUE 5/5, LLE 5/5 Psychiatric: normal affect, normal behavior, A&O x 3 Hosp A/P - Plan MRI brain: patient with acute infarct left corpus striatum, lacunar infarct right melva, chronic ischemic white matter changes Carotid doppler: no significant stenosis CTA: left M2 patchy filling CT brain: negative ECHO: mild LVH, EF 55-60%, moderate MR, mild TR MRI Brain 04/09/19: minimal overall increase in prominence to area of infarct in left periventricular white matter and posterior limb of internal capsule This is a 73 year old male with past medical history of hypertension who presented with acute stroke Acute Left corpus striatum stroke - CT head negative, MRI brain showed acute infarct left corpus striatum, repeat 04/09 showed slight increase in area of infarct - continue aspirin and plavix. Patient was given additional loading dose of plavix 150 mg on 04/09 - continue lisinopril 10 mg daily, continue amlodipine 5 mg - LDL 92, A1C 7, TSH normal - PT/OT/Speech following - referrals sent for rehab #RIght leg spasms #Back pain - add flexeril 5 mg prn, tylenol prn - lidocaine patch daily - mag level low - Type II diabetes - Hb A1C of 7 - continue insulin sliding scale - metformin on discharge Depression - lexapro BPH - finasteride Disposition: needs rehab, awaiting bed DVT prophylaxis: heparin SC Code status: full code
[2019-04-12] MEDS: Acetaminophen 325 MG TAB PO PRN (20:54)
[2019-04-12] MEDS: Lidocaine 5% Patch TD SCH (20:55)
[2019-04-12] MEDS: Atorvastatin Calcium 40 MG TAB PO SCH (20:55)
[2019-04-13] MEDS: Acetaminophen 325 MG TAB PO PRN (09:38)
[2019-04-13] MEDS: Cyclobenzaprine 10 MG TAB PO PRN ×2 (09:39→22:19)
[2019-04-13] MEDS: Escitalopram Oxalate 10 mg Tablet PO SCH (09:40)
[2019-04-13] MEDS: Trospium 20 MG TAB PO SCH ×2 (09:40→22:20)
[2019-04-13] MEDS: Aspirin 81 mg Enteric Coated Tablet PO SCH (09:40)
[2019-04-13] MEDS: Famotidine 20 MG TAB PO SCH ×2 (09:40→22:19)
[2019-04-13] MEDS: Finasteride 5 MG TAB PO SCH (09:41)
[2019-04-13] MEDS: Lisinopril 10 MG TAB PO SCH (09:41)
[2019-04-13] MEDS: Clopidogrel Bisulfate 75 MG TAB PO SCH (09:42)
[2019-04-13] MEDS: Amlodipine 5 MG TAB PO SCH (09:42)
[2019-04-13] MEDS: Heparin 5,000 UNITS/ML VIAL SC SCH ×3 (09:43→22:19)
[2019-04-13] MEDS: Fenofibrate 48 MG TAB PO SCH (09:43)
[2019-04-13] MEDS: Lidocaine Patch Removal 1 EACH TOP SCH (09:45)
--- NOTE | 2019-04-13 17:23 | PDOC.HOSPP ---
- Subjective Encounter Date: 04/13/19 Encounter Time: 16:00 Subjective: The patient did better last night, was able to sleep better. Has some spasms this morning but thinks flexeril and lidocaine patch is helping. Had two loose stools today, he thinks from drinking artificial sweeteners. No abd pain, nausea or vomiting - Objective Vital Signs & Weight: Vital Signs (12 hours) Temp Pulse Resp BP BP Pulse Ox 04/13/19 15:46 98.2 F 65 18 127/59 L 99 04/13/19 11:56 98.3 F 68 16 111/55 L 99 04/13/19 09:42 59 L 120/59 L 04/13/19 09:41 120/59 L 04/13/19 09:32 99 04/13/19 07:46 97.6 F 59 L 16 120/59 L 99 Weight Weight 225 lb I&O: 04/12/19 04/13/19 04/14/19 06:59 06:59 06:59 Intake Total 1190 960 Output Total 650 350 Balance 540 610 Result Diagrams: 04/12/19 04:20 04/12/19 04:20 Additional Labs: Accuchecks 04/13/19 04/13/19 04/12/19 10:53 06:19 21:22 POC Glucose 149 H 140 H 188 H 04/12/19 17:33 POC Glucose 135 H Hospitalist ROS - Review of Systems Constitutional: denies: fever, chills - Medication Medications: Active Medications Generic Name Dose Route Start Last Admin Trade Name Freq PRN Reason Stop Dose Admin Acetaminophen 650 mg 04/12/19 16:14 04/13/19 09:38 Tylenol PO 650 mg Q6H PRN Administration Headache/Fever or Pain Amlodipine Besylate 5 mg 04/12/19 09:00 04/13/19 09:42 Norvasc PO 5 mg DAILY CHARLIE Administration Aspirin 81 mg 04/10/19 09:00 04/13/19 09:40 Ecotrin PO 81 mg DAILY CHARLIE Administration Atorvastatin Calcium 40 mg 04/08/19 21:00 04/12/19 20:55 Lipitor PO 40 mg HS CHARLIE Administration Clopidogrel Bisulfate 75 mg 04/08/19 09:00 04/13/19 09:42 Plavix PO 75 mg DAILY CHARLIE Administration Cyclobenzaprine HCl 5 mg 04/12/19 16:15 04/13/19 09:39 Flexeril PO 5 mg BIDPRN PRN Administration Muscle Spasm Escitalopram Oxalate 10 mg 04/09/19 09:00 04/13/19 09:40 Lexapro PO 10 mg DAILY CHARLIE Administration Famotidine 20 mg 04/10/19 09:00 04/13/19 09:40 Pepcid PO 20 mg BID CHARLIE Administration Fenofibrate 48 mg 04/09/19 09:00 04/13/19 09:43 Tricor PO 48 mg DAILY CHARLIE Administration Finasteride 5 mg 04/09/19 09:00 04/13/19 09:41 Proscar PO 5 mg DAILY CHARLIE Administration Heparin Sodium (Porcine) 5,000 units 04/10/19 15:00 04/13/19 15:33 Heparin SC 5,000 units TID CHARLIE Administration Insulin Human Lispro 0 units 04/08/19 13:27 04/12/19 12:07 Humalog SC 2 unit .MILD SLIDING SCALE PRN Administration MILD SLIDING SCALE Protocol Lidocaine 1 patch 04/12/19 21:00 04/12/19 20:55 Lidoderm 5% Patch TD 1 patch 2100 CHARLIE Administration Lisinopril 10 mg 04/11/19 09:00 04/13/19 09:41 Zestril PO 10 mg DAILY CHARLIE Administration Miscellaneous Medication 1 each 04/13/19 09:00 04/13/19 09:45 Lidocaine Patch Removal TOP 1 each 0900 CHARLIE Administration Sodium Chloride 10 ml 04/08/19 00:41 04/12/19 20:55 Flush - Normal Saline IVF 10 ml PRN PRN Administration Saline Flush Trospium 20 mg 04/09/19 09:00 04/13/19 09:40 Trospium PO 20 mg BID CHARLIE Administration - Exam General Appearance: NAD, awake alert Eye: PERRL, anicteric sclera ENT: normocephalic atraumatic, no oropharyngeal lesions Neck: supple, symmetric, no JVD, no thyromegaly Heart: RRR, no murmur, no gallops, no rubs Respiratory: CTAB, no wheezes, no rales, no ronchi Gastrointestinal: soft, non-tender, non-distended, normal bowel sounds Neurological: facial droop Neurological - other findings: RUE flaccid. RLE can move while laying down, 4/ 5 strength. LUE+ LLE 5/5 Psychiatric: normal affect, normal behavior, A&O x 3 Hosp A/P - Plan MRI brain: patient with acute infarct left corpus striatum, lacunar infarct right melva, chronic ischemic white matter changes Carotid doppler: no significant stenosis CTA: left M2 patchy filling CT brain: negative ECHO: mild LVH, EF 55-60%, moderate MR, mild TR MRI Brain 04/09/19: minimal overall increase in prominence to area of infarct in left periventricular white matter and posterior limb of internal capsule This is a 73 year old male with past medical history of hypertension who presented with acute stroke Acute Left corpus striatum stroke - CT head negative, MRI brain showed acute infarct left corpus striatum, repeat 04/09 showed slight increase in area of infarct - continue aspirin and plavix. Patient was given additional loading dose of plavix 150 mg on 04/09 - continue lisinopril 10 mg daily, continue amlodipine 5 mg - LDL 92, A1C 7, TSH normal - PT/OT/Speech following - currently pending rehab placement #RIght leg spasms #Back pain - continue flexeril 5 mg prn, tylenol prn - lidocaine patch daily Type II diabetes - Hb A1C of 7 - continue insulin sliding scale - metformin on discharge Depression - lexapro BPH - finasteride Disposition: needs rehab, awaiting bed DVT prophylaxis: heparin SC Code status: full code
[2019-04-13] MEDS: HumaLOG 300 UNITS/3 ML VIAL SC PRN (18:48)
[2019-04-13] MEDS: Lidocaine 5% Patch TD SCH (22:18)
[2019-04-13] MEDS: Atorvastatin Calcium 40 MG TAB PO SCH (22:19)
[2019-04-14] MEDS: Clopidogrel Bisulfate 75 MG TAB PO SCH (08:32)
[2019-04-14] MEDS: Finasteride 5 MG TAB PO SCH (08:32)
[2019-04-14] MEDS: Lisinopril 10 MG TAB PO SCH (08:32)
[2019-04-14] MEDS: Heparin 5,000 UNITS/ML VIAL SC SCH ×3 (08:32→21:10)
[2019-04-14] MEDS: Trospium 20 MG TAB PO SCH ×2 (08:33→21:09)
[2019-04-14] MEDS: Aspirin 81 mg Enteric Coated Tablet PO SCH (08:33)
[2019-04-14] MEDS: Escitalopram Oxalate 10 mg Tablet PO SCH (08:33)
[2019-04-14] MEDS: Acetaminophen 325 MG TAB PO PRN ×2 (08:33→21:09)
[2019-04-14] MEDS: Famotidine 20 MG TAB PO SCH ×2 (08:33→21:09)
[2019-04-14] MEDS: Amlodipine 5 MG TAB PO SCH (08:33)
[2019-04-14] MEDS: Fenofibrate 48 MG TAB PO SCH (10:32)
[2019-04-14] MEDS: Lidocaine Patch Removal 1 EACH TOP SCH (10:33)
[2019-04-14] MEDS: Lidocaine 5% Patch TD SCH (21:10)
[2019-04-14] MEDS: Atorvastatin Calcium 40 MG TAB PO SCH (21:10)
[2019-04-14] MEDS: Cyclobenzaprine 10 MG TAB PO PRN (21:13)
--- NOTE | 2019-04-14 22:06 | PDOC.HOSPP ---
- Subjective Encounter Date: 04/14/19 Encounter Time: 09:45 Subjective: cc: f/u for acute stroke subjective: patient is new to me. seen and personally examined at bedside. chart , labs, imaging results reviewed. offers no acute complaints. still weak in right arm and has to use left arm to hold right arm up. walked with PT today using hemiwalker. notes chronic arthralgias. PT recommends right arm sling when walking. nurse notes no acute events. reports patient is awaiting rehab approval - Objective Vital Signs & Weight: Vital Signs (12 hours) Temp Pulse Resp BP BP Pulse Ox 04/14/19 21:25 97.8 F 71 16 132/60 97 04/14/19 16:00 98.6 F 61 16 121/58 L 97 04/14/19 11:53 98.6 F 72 16 122/57 L 97 Weight Weight 225 lb I&O: 04/13/19 04/14/19 04/15/19 06:59 06:59 06:59 Intake Total 960 960 635 Output Total 350 600 350 Balance 610 360 285 Result Diagrams: 04/12/19 04:20 04/12/19 04:20 Additional Labs: Accuchecks 04/14/19 04/14/19 04/14/19 19:34 17:12 10:55 POC Glucose 176 H 123 H 144 H 04/14/19 04/13/19 06:07 21:38 POC Glucose 136 H 182 H Hospitalist ROS - Review of Systems Other: ROS: pertinent positives per SUBJECTIVE; remainder ROS negative - Medication Medications: Active Medications Generic Name Dose Route Start Last Admin Trade Name Freq PRN Reason Stop Dose Admin Acetaminophen 650 mg 04/12/19 16:14 04/14/19 21:09 Tylenol PO 650 mg Q6H PRN Administration Headache/Fever or Pain Amlodipine Besylate 5 mg 04/12/19 09:00 04/14/19 08:33 Norvasc PO 5 mg DAILY CHARLIE Administration Aspirin 81 mg 04/10/19 09:00 04/14/19 08:33 Ecotrin PO 81 mg DAILY CHARLIE Administration Atorvastatin Calcium 40 mg 04/08/19 21:00 04/14/19 21:10 Lipitor PO 40 mg HS CHARLIE Administration Clopidogrel Bisulfate 75 mg 04/08/19 09:00 04/14/19 08:32 Plavix PO 75 mg DAILY CHARLIE Administration Cyclobenzaprine HCl 5 mg 04/12/19 16:15 04/14/19 21:13 Flexeril PO 5 mg BIDPRN PRN Administration Muscle Spasm Escitalopram Oxalate 10 mg 04/09/19 09:00 04/14/19 08:33 Lexapro PO 10 mg DAILY CHARLIE Administration Famotidine 20 mg 04/10/19 09:00 04/14/19 21:09 Pepcid PO 20 mg BID CHARLIE Administration Fenofibrate 48 mg 04/09/19 09:00 04/14/19 10:32 Tricor PO 48 mg DAILY CHARLIE Administration Finasteride 5 mg 04/09/19 09:00 04/14/19 08:32 Proscar PO 5 mg DAILY CHARLIE Administration Heparin Sodium (Porcine) 5,000 units 04/10/19 15:00 04/14/19 21:10 Heparin SC 5,000 units TID CHARLIE Administration Insulin Human Lispro 0 units 04/08/19 13:27 04/13/19 18:48 Humalog SC 2 unit .MILD SLIDING SCALE PRN Administration MILD SLIDING SCALE Protocol Lidocaine 1 patch 04/12/19 21:00 04/14/19 21:10 Lidoderm 5% Patch TD 1 patch 2100 CHARLIE Administration Lisinopril 10 mg 04/11/19 09:00 04/14/19 08:32 Zestril PO 10 mg DAILY CHARLIE Administration Miscellaneous Medication 1 each 04/13/19 09:00 04/14/19 10:33 Lidocaine Patch Removal TOP Not Given 0900 CHARLIE Sodium Chloride 10 ml 04/08/19 00:41 04/12/19 20:55 Flush - Normal Saline IVF 10 ml PRN PRN Administration Saline Flush Trospium 20 mg 04/09/19 09:00 04/14/19 21:09 Trospium PO 20 mg BID CHARLIE Administration - Exam General Appearance: NAD, awake alert Eye: PERRL, anicteric sclera ENT: normocephalic atraumatic, no oropharyngeal lesions, moist mucosa ENT - other findings: FACIAL ASYMMETRY Neck: supple, no JVD Heart: RRR, no murmur Respiratory: CTAB, no wheezes, no rales, normal chest expansion, no tachypnea Gastrointestinal: soft, non-tender, non-distended, normal bowel sounds Extremities: no cyanosis, no clubbing, no edema Skin: normal turgor, no lesions, no rashes Neurological: normal sensation to touch Neurological - other findings: right facial droop. right arm flaccid. decreased right hand canal driver. Musculoskeletal - other findings: rigth arm weakness Psychiatric: normal affect, normal behavior, A&O x 3 Hosp A/P - Plan IMAGING STUDIES: MRI brain: patient with acute infarct left corpus striatum, lacunar infarct right melva, chronic ischemic white matter changes Carotid doppler: no significant stenosis CTA: left M2 patchy filling CT brain: negative ECHO: mild LVH, EF 55-60%, moderate MR, mild TR MRI Brain 04/09/19: minimal overall increase in prominence to area of infarct in left periventricular white matter and posterior limb of internal capsule assessment/plan This is a 73 year old male with past medical history of hypertension who 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 LDL 92 - continue PT and OT, request right arm sling. continue Speech therapy. - LDL 92, A1C 7, TSH normal - currently pending rehab placement #Right leg spasms #Back pain - continue flexeril 5 mg prn and minimize use, tylenol prn. start prn Motrin - lidocaine patch daily Type II diabetes - Hb A1C of 7 - continue insulin sliding scale - metformin on discharge Depression: continue lexapro BPH - finasteride DVT px: ambulation Disposition: patient medically stable for discharge. await approval for rehab facility. Code status: Full code
[2019-04-15] MEDS: Clopidogrel Bisulfate 75 MG TAB PO SCH (09:19)
[2019-04-15] MEDS: Amlodipine 5 MG TAB PO SCH (09:19)
[2019-04-15] MEDS: Aspirin 81 mg Enteric Coated Tablet PO SCH (09:19)
[2019-04-15] MEDS: Escitalopram Oxalate 10 mg Tablet PO SCH (09:19)
[2019-04-15] MEDS: Lisinopril 10 MG TAB PO SCH (09:20)
[2019-04-15] MEDS: Finasteride 5 MG TAB PO SCH (09:20)
[2019-04-15] MEDS: Famotidine 20 MG TAB PO SCH ×2 (09:20→21:43)
[2019-04-15] MEDS: Fenofibrate 48 MG TAB PO SCH (09:20)
[2019-04-15] MEDS: Ibuprofen 200 MG TAB PO PRN ×2 (09:21→21:43)
[2019-04-15] MEDS: Trospium 20 MG TAB PO SCH ×2 (09:21→21:43)
[2019-04-15] MEDS: Lidocaine Patch Removal 1 EACH TOP SCH (09:22)
[2019-04-15] MEDS: Heparin 5,000 UNITS/ML VIAL SC SCH ×3 (09:31→21:43)
--- NOTE | 2019-04-15 10:17 | PDOC.HOSPP ---
- Subjective Encounter Date: 04/15/19 Encounter Time: 10:17 Subjective: cc: f/u for acute stroke subjective: patient is seen at bedside. sitting in chair. daughter present .offers no new complaints. doing exercises. nurse notes no acute overnight events and reports patient still awaiting insurance authorization case management reports patient still awaiting insurance authorization - Objective Vital Signs & Weight: Vital Signs (12 hours) Temp Pulse Resp BP BP Pulse Ox 04/15/19 09:19 58 L 04/15/19 07:42 97.7 F 58 L 13 129/61 97 04/15/19 00:15 98 F 63 14 125/59 L 97 Weight Weight 225 lb I&O: 04/14/19 04/15/19 04/16/19 06:59 06:59 06:59 Intake Total 960 935 Output Total 600 350 Balance 360 585 Result Diagrams: 04/12/19 04:20 04/12/19 04:20 Additional Labs: Accuchecks 04/15/19 04/14/19 04/14/19 05:53 19:34 17:12 POC Glucose 122 H 176 H 123 H 04/14/19 10:55 POC Glucose 144 H Hospitalist ROS - Medication Medications: Active Medications Generic Name Dose Route Start Last Admin Trade Name Freq PRN Reason Stop Dose Admin Acetaminophen 650 mg 04/12/19 16:14 04/14/19 21:09 Tylenol PO 650 mg Q6H PRN Administration Headache/Fever or Pain Amlodipine Besylate 5 mg 04/12/19 09:00 04/15/19 09:19 Norvasc PO 5 mg DAILY CHARLIE Administration Aspirin 81 mg 04/10/19 09:00 04/15/19 09:19 Ecotrin PO 81 mg DAILY CHARLIE Administration Atorvastatin Calcium 40 mg 04/08/19 21:00 04/14/19 21:10 Lipitor PO 40 mg HS CHARLIE Administration Clopidogrel Bisulfate 75 mg 04/08/19 09:00 04/15/19 09:19 Plavix PO 75 mg DAILY CHARLIE Administration Cyclobenzaprine HCl 5 mg 04/12/19 16:15 04/14/19 21:13 Flexeril PO 5 mg BIDPRN PRN Administration Muscle Spasm Escitalopram Oxalate 10 mg 04/09/19 09:00 04/15/19 09:19 Lexapro PO 10 mg DAILY CHARLIE Administration Famotidine 20 mg 04/10/19 09:00 04/15/19 09:20 Pepcid PO 20 mg BID CHARLIE Administration Fenofibrate 48 mg 04/09/19 09:00 04/15/19 09:20 Tricor PO 48 mg DAILY CHARLIE Administration Finasteride 5 mg 04/09/19 09:00 04/15/19 09:20 Proscar PO 5 mg DAILY CHARLIE Administration Heparin Sodium (Porcine) 5,000 units 04/10/19 15:00 04/15/19 09:31 Heparin SC 5,000 units TID CHARLIE Administration Ibuprofen 400 mg 04/14/19 10:19 04/15/19 09:21 Motrin PO 400 mg Q6H PRN Administration Pain Insulin Human Lispro 0 units 04/08/19 13:27 04/13/19 18:48 Humalog SC 2 unit .MILD SLIDING SCALE PRN Administration MILD SLIDING SCALE Protocol Lidocaine 1 patch 04/12/19 21:00 04/14/19 21:10 Lidoderm 5% Patch TD 1 patch 2100 CHARLIE Administration Lisinopril 10 mg 04/11/19 09:00 04/15/19 09:20 Zestril PO 10 mg DAILY CHARLIE Administration Miscellaneous Medication 1 each 04/13/19 09:00 04/15/19 09:22 Lidocaine Patch Removal TOP Not Given 0900 CHARLIE Sodium Chloride 10 ml 04/08/19 00:41 04/12/19 20:55 Flush - Normal Saline IVF 10 ml PRN PRN Administration Saline Flush Trospium 20 mg 04/09/19 09:00 04/15/19 09:21 Trospium PO 20 mg BID CHARLIE Administration Hosp A/P - Plan - Exam General Appearance: NAD, awake alert Eye: PERRL, anicteric sclera ENT: normocephalic atraumatic, no oropharyngeal lesions, moist mucosa ENT - other findings: FACIAL ASYMMETRY Neck: supple, no JVD Heart: RRR, no murmur Respiratory: CTAB, no wheezes, no rales, normal chest expansion, no tachypnea Gastrointestinal: soft, non-tender, non-distended, normal bowel sounds Extremities: no cyanosis, no clubbing, no edema Skin: normal turgor, no lesions, no rashes Neurological: normal sensation to touch Neurological - other findings: right facial droop. right arm flaccid. decreased right hand on call. Musculoskeletal - other findings: rigth arm weakness Psychiatric: normal affect, normal behavior, A&O x 3 IMAGING STUDIES: MRI brain: patient with acute infarct left corpus striatum, lacunar infarct right melva, chronic ischemic white matter changes Carotid doppler: no significant stenosis CTA: left M2 patchy filling CT brain: negative ECHO: mild LVH, EF 55-60%, moderate MR, mild TR MRI Brain 04/09/19: minimal overall increase in prominence to area of infarct in left periventricular white matter and posterior limb of internal capsule assessment/plan This is a 73 year old male with past medical history of hypertension who 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 LDL 92 - continue PT and OT, continue right arm sling with therapies. continue Speech therapy. - LDL 92, A1C 7, TSH normal - currently pending rehab placement #Right leg spasms #Back pain - continue flexeril 5 mg prn and minimize use, tylenol prn. start prn Motrin - lidocaine patch daily Type II diabetes - Hb A1C of 7 - continue insulin sliding scale - metformin on discharge Depression: continue lexapro BPH - finasteride DVT px: ambulation Disposition: patient medically stable for discharge. await approval for rehab facility. Code status: Full code
[2019-04-15] MEDS: HumaLOG 300 UNITS/3 ML VIAL SC PRN (11:37)
[2019-04-15] MEDS: Atorvastatin Calcium 40 MG TAB PO SCH (21:43)
[2019-04-15] MEDS: Lidocaine 5% Patch TD SCH (21:43)
[2019-04-16] MEDS: Trospium 20 MG TAB PO SCH ×2 (08:37→20:44)
[2019-04-16] MEDS: Heparin 5,000 UNITS/ML VIAL SC SCH (08:37)
[2019-04-16] MEDS: Famotidine 20 MG TAB PO SCH ×2 (08:38→20:45)
[2019-04-16] MEDS: Fenofibrate 48 MG TAB PO SCH (08:38)
[2019-04-16] MEDS: Lisinopril 10 MG TAB PO SCH (08:38)
[2019-04-16] MEDS: Amlodipine 5 MG TAB PO SCH (08:38)
[2019-04-16] MEDS: Aspirin 81 mg Enteric Coated Tablet PO SCH (08:38)
[2019-04-16] MEDS: Clopidogrel Bisulfate 75 MG TAB PO SCH (08:38)
[2019-04-16] MEDS: Escitalopram Oxalate 10 mg Tablet PO SCH (08:38)
[2019-04-16] MEDS: Finasteride 5 MG TAB PO SCH (08:39)
[2019-04-16] MEDS: Lidocaine Patch Removal 1 EACH TOP SCH (08:41)
[2019-04-16] MEDS ORDERED: Polyethylene Glycol 3350 17 GM Packet PO PRN (10:48)
--- NOTE | 2019-04-16 10:52 | PDOC.HOSPP ---
- Subjective Encounter Date: 04/16/19 Encounter Time: 10:49 Subjective: cc: f/u for acute stroke subjective: patient is seen at bedside. sitting in chair. Spouse present .offers no new complaints. doing exercises and participating with PT. nurse notes no acute overnight events and reports patient still awaiting insurance authorization for acute rehabilitation. - Objective Vital Signs & Weight: Vital Signs (12 hours) Temp Pulse Resp BP Pulse Ox 04/16/19 08:38 66 04/16/19 08:00 97.9 F 66 18 109/58 L 94 L 04/16/19 04:26 97.8 F 63 16 119/55 L 96 04/16/19 00:22 97.4 F L 59 L 16 123/58 L 94 L Weight Weight 225 lb I&O: 04/15/19 04/16/19 04/17/19 06:59 06:59 06:59 Intake Total 935 1256 Output Total 350 225 100 Balance 585 1031 -100 Result Diagrams: 04/12/19 04:20 04/12/19 04:20 Additional Labs: Accuchecks 04/16/19 04/15/19 04/15/19 05:48 21:39 16:42 POC Glucose 128 H 152 H 132 H 04/15/19 10:58 POC Glucose 183 H Hospitalist ROS - Review of Systems Other: ROS: pertinent positive per SUBJECTIVE; remainder ROS Negative. - Medication Medications: Active Medications Generic Name Dose Route Start Last Admin Trade Name Freq PRN Reason Stop Dose Admin Acetaminophen 650 mg 04/12/19 16:14 04/14/19 21:09 Tylenol PO 650 mg Q6H PRN Administration Headache/Fever or Pain Amlodipine Besylate 5 mg 04/12/19 09:00 04/16/19 08:38 Norvasc PO 5 mg DAILY CHARLIE Administration Aspirin 81 mg 04/10/19 09:00 04/16/19 08:38 Ecotrin PO 81 mg DAILY CHARLIE Administration Atorvastatin Calcium 40 mg 04/08/19 21:00 04/15/19 21:43 Lipitor PO 40 mg HS CHARLIE Administration Clopidogrel Bisulfate 75 mg 04/08/19 09:00 04/16/19 08:38 Plavix PO 75 mg DAILY CHARLIE Administration Cyclobenzaprine HCl 5 mg 04/12/19 16:15 04/14/19 21:13 Flexeril PO 5 mg BIDPRN PRN Administration Muscle Spasm Escitalopram Oxalate 10 mg 04/09/19 09:00 04/16/19 08:38 Lexapro PO 10 mg DAILY CHARLIE Administration Famotidine 20 mg 04/10/19 09:00 04/16/19 08:38 Pepcid PO 20 mg BID CHARLIE Administration Fenofibrate 48 mg 04/09/19 09:00 04/16/19 08:38 Tricor PO 48 mg DAILY CHARLIE Administration Finasteride 5 mg 04/09/19 09:00 04/16/19 08:39 Proscar PO 5 mg DAILY CHARLIE Administration Ibuprofen 400 mg 04/14/19 10:19 04/15/19 21:43 Motrin PO 400 mg Q6H PRN Administration Pain Insulin Human Lispro 0 units 04/08/19 13:27 04/15/19 11:37 Humalog SC 2 unit .MILD SLIDING SCALE PRN Administration MILD SLIDING SCALE Protocol Lidocaine 1 patch 04/12/19 21:00 04/15/19 21:43 Lidoderm 5% Patch TD 1 patch 2100 CHARLIE Administration Lisinopril 10 mg 04/11/19 09:00 04/16/19 08:38 Zestril PO 10 mg DAILY CHARLIE Administration Miscellaneous Medication 1 each 04/13/19 09:00 04/16/19 08:41 Lidocaine Patch Removal TOP 1 each 0900 CHARLIE Administration Sodium Chloride 10 ml 04/08/19 00:41 04/12/19 20:55 Flush - Normal Saline IVF 10 ml PRN PRN Administration Saline Flush Trospium 20 mg 04/09/19 09:00 04/16/19 08:37 Trospium PO 20 mg BID CHARLIE Administration Hosp A/P - Plan - PHYSICAL EXAM: General Appearance: NAD, awake alert Eye: PERRL, anicteric sclera ENT: normocephalic atraumatic, no oropharyngeal lesions, moist mucosa ENT - other findings: FACIAL ASYMMETRY Neck: supple, no JVD Heart: RRR, no murmur Respiratory: CTAB, no wheezes, no rales, normal chest expansion, no tachypnea Gastrointestinal: soft, non-tender, non-distended, normal bowel sounds Extremities: no cyanosis, no clubbing, no edema Skin: normal turgor, no lesions, no rashes Neurological: normal sensation to touch Neurological - other findings: right facial droop. right arm flaccid. 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 Musculoskeletal - other findings: right arm weakness Psychiatric: normal affect, normal behavior, A&O x 3 IMAGING STUDIES: MRI brain: patient with acute infarct left corpus striatum, lacunar infarct right melva, chronic ischemic white matter changes Carotid doppler: no significant stenosis CTA: left M2 patchy filling CT brain: negative ECHO: mild LVH, EF 55-60%, moderate MR, mild TR MRI Brain 04/09/19: minimal overall increase in prominence to area of infarct in left periventricular white matter and posterior limb of internal capsule assessment/plan This is a 73 year old male with past medical history of hypertension who 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 LDL 92 - continue PT and OT, continue right arm sling with therapies. continue Speech therapy. - LDL 92, A1C 7, TSH normal - currently pending acute rehab placement which patient would benefit from and is motivated to participate with Chronic Back pain - continue flexeril 5 mg prn and minimize use, tylenol prn. start prn Motrin - lidocaine patch daily Type 2 diabetes - Hb A1C of 7 - continue insulin sliding scale - metformin on discharge Depression: continue lexapro BPH - finasteride DVT px: LMWH Disposition: patient medically stable for discharge. await approval for acute rehab facility for acute stroke. Code status: Full code
[2019-04-16] MEDS: HumaLOG 300 UNITS/3 ML VIAL SC PRN (12:21)
[2019-04-16] MEDS: Docusate 100 MG CAP PO SCH (20:44)
[2019-04-16] MEDS: Atorvastatin Calcium 40 MG TAB PO SCH (20:44)
[2019-04-16] MEDS: Ibuprofen 200 MG TAB PO PRN (20:46)
[2019-04-16] MEDS: Lidocaine 5% Patch TD SCH (20:54)
[2019-04-17] MEDS: Famotidine 20 MG TAB PO SCH ×2 (09:25→21:27)
[2019-04-17] MEDS: Lisinopril 10 MG TAB PO SCH (09:25)
[2019-04-17] MEDS: Finasteride 5 MG TAB PO SCH (09:25)
[2019-04-17] MEDS: Trospium 20 MG TAB PO SCH ×2 (09:25→21:27)
[2019-04-17] MEDS: Clopidogrel Bisulfate 75 MG TAB PO SCH (09:25)
[2019-04-17] MEDS: Aspirin 81 mg Enteric Coated Tablet PO SCH (09:25)
[2019-04-17] MEDS: Amlodipine 5 MG TAB PO SCH (09:25)
[2019-04-17] MEDS: Lidocaine Patch Removal 1 EACH TOP SCH (09:26)
[2019-04-17] MEDS: Fenofibrate 48 MG TAB PO SCH (09:26)
[2019-04-17] MEDS: Enoxaparin Sodium 40 MG/0.4 ML SYRINGE SC SCH (09:26)
[2019-04-17] MEDS: Docusate 100 MG CAP PO SCH ×2 (09:26→21:27)
[2019-04-17] MEDS: Escitalopram Oxalate 10 mg Tablet PO SCH (09:26)
[2019-04-17] MEDS: Ibuprofen 200 MG TAB PO PRN ×2 (17:40→21:31)
[2019-04-17] MEDS: Cyclobenzaprine 10 MG TAB PO PRN (17:41)
--- NOTE | 2019-04-17 17:59 | PDOC.HOSPP ---
- Subjective Encounter Date: 04/17/19 Encounter Time: 17:59 Subjective: cc: f/u for acute stroke subjective: patient is seen at bedside. Spouse and daughter present .patient offers no new complaints. participating with therapy teams. discussed with weekend case management rn who notes patient is still awaiting insurance authorization. - Objective Vital Signs & Weight: Vital Signs (12 hours) Temp Pulse Resp BP BP Pulse Ox 04/17/19 15:49 98.3 F 77 16 130/61 99 04/17/19 11:55 97.9 F 71 20 122/67 99 04/17/19 09:25 63 135/63 04/17/19 07:54 98.5 F 63 16 135/63 98 Weight Weight 225 lb I&O: 04/16/19 04/17/19 04/18/19 06:59 06:59 06:59 Intake Total 1256 1140 420 Output Total 225 725 Balance 1031 415 420 Result Diagrams: 04/12/19 04:20 04/12/19 04:20 Additional Labs: Accuchecks 04/17/19 04/17/19 04/17/19 17:13 10:32 06:16 POC Glucose 140 H 159 H 133 H 04/16/19 20:22 POC Glucose 256 H Hospitalist ROS - Review of Systems Other: ROS: pertinent positive per SUBJECTIVE; remainder ROS negative - Medication Medications: Active Medications Generic Name Dose Route Start Last Admin Trade Name Freq PRN Reason Stop Dose Admin Acetaminophen 650 mg 04/12/19 16:14 04/14/19 21:09 Tylenol PO 650 mg Q6H PRN Administration Headache/Fever or Pain Amlodipine Besylate 5 mg 04/12/19 09:00 04/17/19 09:25 Norvasc PO 5 mg DAILY CHARLIE Administration Aspirin 81 mg 04/10/19 09:00 04/17/19 09:25 Ecotrin PO 81 mg DAILY CHARLIE Administration Atorvastatin Calcium 40 mg 04/08/19 21:00 04/16/19 20:44 Lipitor PO 40 mg HS CHARLIE Administration Clopidogrel Bisulfate 75 mg 04/08/19 09:00 04/17/19 09:25 Plavix PO 75 mg DAILY CHARLIE Administration Cyclobenzaprine HCl 5 mg 04/12/19 16:15 04/17/19 17:41 Flexeril PO 5 mg BIDPRN PRN Administration Muscle Spasm Docusate Sodium 100 mg 04/16/19 21:00 04/17/19 09:26 Colace PO 100 mg BID CHARLIE Administration Enoxaparin Sodium 40 mg 04/17/19 09:00 04/17/19 09:26 Lovenox SC 40 mg 0900 CHARLIE Administration Escitalopram Oxalate 10 mg 04/09/19 09:00 04/17/19 09:26 Lexapro PO 10 mg DAILY CHARLIE Administration Famotidine 20 mg 04/10/19 09:00 04/17/19 09:25 Pepcid PO 20 mg BID CHARLIE Administration Fenofibrate 48 mg 04/09/19 09:00 04/17/19 09:26 Tricor PO 48 mg DAILY CHARLIE Administration Finasteride 5 mg 04/09/19 09:00 04/17/19 09:25 Proscar PO 5 mg DAILY CHARLIE Administration Ibuprofen 400 mg 04/14/19 10:19 04/17/19 17:40 Motrin PO 400 mg Q6H PRN Administration Pain Insulin Human Lispro 0 units 04/08/19 13:27 04/16/19 12:21 Humalog SC 2 unit .MILD SLIDING SCALE PRN Administration MILD SLIDING SCALE Protocol Lidocaine 1 patch 04/12/19 21:00 04/16/19 20:54 Lidoderm 5% Patch TD 1 patch 2100 [facility] Administration Lisinopril 10 mg 04/11/19 09:00 04/17/19 09:25 Zestril PO 10 mg DAILY CHARLIE Administration Miscellaneous Medication 1 each 04/13/19 09:00 04/17/19 09:26 Lidocaine Patch Removal TOP 1 each 899 [facility] Administration Polyethylene Glycol 17 gm 04/16/19 10:48 04/16/19 14:13 Miralax PO 17 gm DAILYPRN PRN Administration Constipation Sodium Chloride 10 ml 04/08/19 00:41 04/12/19 20:55 Flush - Normal Saline IVF 10 ml PRN PRN Administration Saline Flush Trospium 20 mg 04/09/19 09:00 04/17/19 09:25 Trospium PO 20 mg BID CHARLIE Administration Hosp A/P - Plan - PHYSICAL EXAM: General Appearance: NAD, awake alert Eye: PERRL, anicteric sclera ENT: normocephalic atraumatic, no oropharyngeal lesions, moist mucosa ENT - other findings: FACIAL ASYMMETRY Neck: supple, no JVD Heart: RRR, no murmur Respiratory: CTAB, no wheezes, no rales, normal chest expansion, no tachypnea Gastrointestinal: soft, non-tender, non-distended, normal bowel sounds Extremities: no cyanosis, no clubbing, no edema Skin: normal turgor, no lesions, no rashes Neurological: normal sensation to touch Neurological - other findings: right facial droop. right arm flaccid. slurred speech. 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 Musculoskeletal - other findings: right arm weakness. LUE and LLE normal strength. sensation intact throughout. 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 LDL 92 - continue PT and OT, continue right arm sling with therapies. continue Speech therapy. - LDL 92, A1C 7, TSH normal - currently pending acute rehab placement which patient would benefit from and is motivated to participate with Chronic Back pain - continue flexeril 5 mg prn and minimize use, tylenol prn. start prn Motrin - lidocaine patch daily Type 2 diabetes - Hb A1C of 7 - continue insulin sliding scale - metformin on discharge Depression: continue lexapro BPH - finasteride DVT px: LMWH Disposition: patient medically stable for discharge. discussed with case management rn who notes patient is still awaiting approval for acute rehab facility for acute stroke. Code status: Full code
[2019-04-17] MEDS: Lidocaine 5% Patch TD SCH (21:26)
[2019-04-17] MEDS: HumaLOG 300 UNITS/3 ML VIAL SC PRN (21:27)
[2019-04-17] MEDS: Atorvastatin Calcium 40 MG TAB PO SCH (21:27)
[2019-04-18] MEDS: Cyclobenzaprine 10 MG TAB PO PRN ×2 (08:41→20:46)
[2019-04-18] MEDS: Escitalopram Oxalate 10 mg Tablet PO SCH (08:42)
[2019-04-18] MEDS: Aspirin 81 mg Enteric Coated Tablet PO SCH (08:42)
[2019-04-18] MEDS: Trospium 20 MG TAB PO SCH ×2 (08:42→20:46)
[2019-04-18] MEDS: Docusate 100 MG CAP PO SCH ×2 (08:42→20:46)
[2019-04-18] MEDS: Clopidogrel Bisulfate 75 MG TAB PO SCH (08:43)
[2019-04-18] MEDS: Lisinopril 10 MG TAB PO SCH (08:43)
[2019-04-18] MEDS: Famotidine 20 MG TAB PO SCH ×2 (08:43→20:46)
[2019-04-18] MEDS: Finasteride 5 MG TAB PO SCH (08:43)
[2019-04-18] MEDS: Amlodipine 5 MG TAB PO SCH (08:44)
[2019-04-18] MEDS: Lidocaine Patch Removal 1 EACH TOP SCH (08:44)
[2019-04-18] MEDS: Enoxaparin Sodium 40 MG/0.4 ML SYRINGE SC SCH (08:45)
[2019-04-18] MEDS: Fenofibrate 48 MG TAB PO SCH (08:46)
--- NOTE | 2019-04-18 10:04 | PDOC.HOSPP ---
- Subjective Encounter Date: 04/18/19 Encounter Time: 10:04 Subjective: cc: f/u for acute stroke subjective: patient is seen at bedside.patient offers no new complaints and awaiting to get to rehab facility to get better.Daughter present . - Objective Vital Signs & Weight: Vital Signs (12 hours) Temp Pulse Resp BP BP Pulse Ox 04/18/19 08:44 65 125/60 04/18/19 08:43 125/60 04/18/19 07:39 97.5 F L 65 16 125/60 96 04/18/19 04:00 97.9 F 58 L 16 118/56 L 98 04/17/19 23:38 98.2 F 57 L 16 116/58 L 99 Weight Weight 225 lb I&O: 04/17/19 04/18/19 04/19/19 06:59 06:59 06:59 Intake Total 1140 780 Output Total 725 201 200 Balance 415 579 -200 Result Diagrams: 04/12/19 04:20 04/12/19 04:20 Additional Labs: Accuchecks 04/18/19 04/17/19 04/17/19 06:19 20:03 17:13 POC Glucose 130 H 232 H 140 H 04/17/19 10:32 POC Glucose 159 H Hospitalist ROS - Review of Systems Other: ROS: pertinent positive per SUBJECTIVE. remainder ROS negative. - Medication Medications: Active Medications Generic Name Dose Route Start Last Admin Trade Name Freq PRN Reason Stop Dose Admin Acetaminophen 650 mg 04/12/19 16:14 04/14/19 21:09 Tylenol PO 650 mg Q6H PRN Administration Headache/Fever or Pain Amlodipine Besylate 5 mg 04/12/19 09:00 04/18/19 08:44 Norvasc PO 5 mg DAILY CHARLIE Administration Aspirin 81 mg 04/10/19 09:00 04/18/19 08:42 Ecotrin PO 81 mg DAILY CHARLIE Administration Atorvastatin Calcium 40 mg 04/08/19 21:00 04/17/19 21:27 Lipitor PO 40 mg HS CHARLIE Administration Clopidogrel Bisulfate 75 mg 04/08/19 09:00 04/18/19 08:43 Plavix PO 75 mg DAILY CHARLIE Administration Cyclobenzaprine HCl 5 mg 04/12/19 16:15 04/18/19 08:41 Flexeril PO 5 mg BIDPRN PRN Administration Muscle Spasm Docusate Sodium 100 mg 04/16/19 21:00 04/18/19 08:42 Colace PO 100 mg BID CHARLIE Administration Enoxaparin Sodium 40 mg 04/17/19 09:00 04/18/19 08:45 Lovenox SC 40 mg 899 CHARLIE Administration Escitalopram Oxalate 10 mg 04/09/19 09:00 04/18/19 08:42 Lexapro PO 10 mg DAILY CHARLIE Administration Famotidine 20 mg 04/10/19 09:00 04/18/19 08:43 Pepcid PO 20 mg BID CHARLIE Administration Fenofibrate 48 mg 04/09/19 09:00 04/18/19 08:46 Tricor PO 48 mg DAILY CHARLIE Administration Finasteride 5 mg 04/09/19 09:00 04/18/19 08:43 Proscar PO 5 mg DAILY CHARLIE Administration Ibuprofen 400 mg 04/14/19 10:19 04/17/19 21:31 Motrin PO 400 mg Q6H PRN Administration Pain Insulin Human Lispro 0 units 04/08/19 13:27 04/17/19 21:27 Humalog SC 3 unit .MILD SLIDING SCALE PRN Administration MILD SLIDING SCALE Protocol Lidocaine 1 patch 04/12/19 21:00 04/17/19 21:26 Lidoderm 5% Patch TD 1 patch 2100 [facility] Administration Lisinopril 10 mg 04/11/19 09:00 04/18/19 08:43 Zestril PO 10 mg DAILY CHARLIE Administration Miscellaneous Medication 1 each 04/13/19 09:00 04/18/19 08:44 Lidocaine Patch Removal TOP 1 each 09 [facility] Administration Polyethylene Glycol 17 gm 04/16/19 10:48 04/16/19 14:13 Miralax PO 17 gm DAILYPRN PRN Administration Constipation Sodium Chloride 10 ml 04/08/19 00:41 04/12/19 20:55 Flush - Normal Saline IVF 10 ml PRN PRN Administration Saline Flush Trospium 20 mg 04/09/19 09:00 04/18/19 08:42 Trospium PO 20 mg BID CHARLIE Administration Hosp A/P - Plan - PHYSICAL EXAM: General Appearance: NAD, awake alert Eye: PERRL, anicteric sclera ENT: normocephalic atraumatic, no oropharyngeal lesions, moist mucosa ENT - other findings: facial asymmetry Neck: supple, no JVD Heart: RRR, no murmur Respiratory: CTAB, no wheezes, no rales, normal chest expansion, no tachypnea Gastrointestinal: soft, non-tender, non-distended, normal bowel sounds Extremities: no cyanosis, no clubbing, no edema Skin: normal turgor, no lesions, no rashes Neurological: normal sensation to touch Neurological - other findings: right facial droop. right arm flaccid. slurred speech. 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 Musculoskeletal - other findings: right arm weakness. LUE and LLE normal strength. sensation intact throughout. 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 LDL 92 - continue PT and OT, continue right arm sling with therapies. continue Speech therapy. - LDL 92, A1C 7, TSH normal - currently pending acute rehab placement which patient would benefit from and is motivated to participate with Chronic Back pain - continue flexeril 5 mg prn and minimize use, tylenol prn. start prn Motrin - lidocaine patch daily Type 2 diabetes - Hb A1C of 7 - continue insulin sliding scale - metformin on discharge Depression: continue lexapro BPH - finasteride DVT px: LMWH Disposition: patient medically stable for discharge. discussed with pillowcase maker who notes patient is still awaiting approval for acute rehab facility for acute stroke. Code status: Full code
[2019-04-18] MEDS: HumaLOG 300 UNITS/3 ML VIAL SC PRN (11:49)
[2019-04-18] MEDS: Ibuprofen 200 MG TAB PO PRN (20:46)
[2019-04-18] MEDS: Lidocaine 5% Patch TD SCH (20:46)
[2019-04-18] MEDS: Atorvastatin Calcium 40 MG TAB PO SCH (20:46)
[2019-04-19] MEDS: Acetaminophen 325 MG TAB PO PRN (06:37)
[2019-04-19] MEDS: Aspirin 81 mg Enteric Coated Tablet PO SCH (08:20)
[2019-04-19] MEDS: Famotidine 20 MG TAB PO SCH (08:20)
[2019-04-19] MEDS: Fenofibrate 48 MG TAB PO SCH (08:20)
[2019-04-19] MEDS: Docusate 100 MG CAP PO SCH (08:20)
[2019-04-19] MEDS: Trospium 20 MG TAB PO SCH (08:20)
[2019-04-19] MEDS: Enoxaparin Sodium 40 MG/0.4 ML SYRINGE SC SCH (08:20)
[2019-04-19] MEDS: Lisinopril 10 MG TAB PO SCH (08:21)
[2019-04-19] MEDS: Amlodipine 5 MG TAB PO SCH (08:21)
[2019-04-19] MEDS: Clopidogrel Bisulfate 75 MG TAB PO SCH (08:21)
[2019-04-19] MEDS: Escitalopram Oxalate 10 mg Tablet PO SCH (08:21)
[2019-04-19] MEDS: Lidocaine Patch Removal 1 EACH TOP SCH (08:22)
[2019-04-19] MEDS: Finasteride 5 MG TAB PO SCH (08:22)
--- NOTE | 2019-04-19 13:58 | DIS ---
DATE OF ADMISSION: 04/08/2019 DATE OF DISCHARGE: 04/19/2019 ADMITTING DIAGNOSES: 1. Transient ischemic attack with mild cerebrovascular accident. 2. Hypertension. 3. Hyperlipidemia. 4. Diabetes mellitus, type 2, diet controlled. DISCHARGE DIAGNOSES: 1. Acute left corpus striatum stroke. 2. Chronic back pain. 3. Diabetes mellitus, type 2. 4. Depression. 5. Benign prostatic hypertrophy. HOSPITAL COURSE: Mr. Lancaster is a 73-year-old male who was admitted with right-sided weakness. Workup in the hospital including CT of the brain initially was negative. MRI of the brain showed an acute infarct left corpus striatum, lacunar infarct right melva, chronic ischemic white matter changes. CTA showed left M2 patchy filling, echo showed mild LVH with ejection fraction 55%-60%, moderate mitral regurg, mild tricuspid regurg. MRI of the brain on 06/10/2018 showed minimal overall increase in the prominence in the area of infarct in the left periventricular white matter and posterior limb of internal capsule. The patient neurologically remained to have right facial droop, right arm weakness, slurred speech and right . The patient started on physical therapy, the patient is going to be going to inpatient rehab. Consultation was obtained by Neurology during hospital stay. DISCHARGE MEDICATIONS: The patient is discharged on 1. Amlodipine 5 mg p.o. daily. 2. Aspirin 81 mg p.o. daily. 3. Atorvastatin 40 mg p.o. at bedtime. 4. Plavix 75 mg p.o. daily. 5. Famotidine 20 mg p.o. b.i.d. 6. Fenofibrate 48 mg p.o. daily. 7. Finasteride 5 mg p.o. daily. 8. Sliding scale with insulin coverage. ACTIVITY: As tolerated. CONDITION ON DISCHARGE: Stable. The patient is being discharged to inpatient rehab. Job ID: [id number]
[2019-04-19] MEDS: Cyclobenzaprine 10 MG TAB PO PRN (14:19)
[2019-04-19 14:49] VITALS: BP 119/57; TEMP 98.5
== END 2019-04-19 14:58 | DRG 65 ==
LOC: ERS 00:15 → 2SE 00:52 → OBSVTOIN 00:52
PROVIDERS: ADMIT Internal Medicine; ATTEND Internal Medicine
DX: I63.81 Other cerebral infarction due to occlusion or stenosis of small artery (principal); G81.91 Hemiplegia, unspecified affecting right dominant side; N17.9 Acute kidney failure, unspecified; G89.29 Other chronic pain; M54.9 Dorsalgia, unspecified; E78.5 Hyperlipidemia, unspecified; E11.9 Type 2 diabetes mellitus without complications; F32.9 Major depressive disorder, single episode, unspecified; N40.0 Benign prostatic hyperplasia without lower urinary tract symptoms; I08.1 Rheumatic disorders of both mitral and tricuspid valves; R29.810 Facial weakness; R47.81 Slurred speech; R29.700 NIHSS score 0; R40.2362 Coma scale, best motor response, obeys commands, at arrival to emergency department; R40.2142 Coma scale, eyes open, spontaneous, at arrival to emergency department; R40.2252 Coma scale, best verbal response, oriented, at arrival to emergency department; R25.2 Cramp and spasm; Z79.02 Long term (current) use of antithrombotics/antiplatelets; Z79.899 Other long term (current) drug therapy; Z79.82 Long term (current) use of aspirin
CPT/HCPCS: 36415; 36416; 70450; 70551; 80048; 80053; 80061; 80076; 81001; 82550; 83036; 83090; 83735; 84443; 85025; 85027; 86038; 86225; 87045; 87046; 87081; 87427; 87449; 93306; 93880; 99285; J1644; J1650

== ENCOUNTER 2019-06-15 09:49 | Inpatient (IN) | payer MEDICARE ==
--- NOTE | 2019-06-15 11:01 | ULT ---
ULTRASOUND WITH DOPPLER DUPLEX VENOUS LOWER EXTREMITY RIGHT: HISTORY: A 74-year-old male with right lower extremity swelling and edema. Dr. Will reported the acute DVT by telephone to ER physician, Dr. Amaya, by telephone at 10:51 a.m. 06/15/2019. TECHNIQUE: Color flow Doppler, spectral waveform analysis of pulsed Doppler, and lockett-scale imaging with yolis uriel and augmentation, were used to evaluate the right common femoral, femoral, popliteal, posterior tibial, and superficial femoral, veins; and the proximal portions of the profunda femoral and greater saphenous, veins. FINDINGS: There is thrombus expanding the lumen of the common femoral, entire femoral, popliteal, posterior tib ial, greater saphenous, and profunda, veins, causing noncompressibility. There is flow detected in t he proximal and distal portions of the femoral vein. No flow is detected by Doppler in the mid porti on of the femoral vein, or in the common femoral vein, popliteal vein, posterior tibial vein, greater saphenous vein, or profunda femoral vein. IMPRESSION: Positive for acute deep venous thrombosis of the entire right lower extremity. CODE CR JN R POS: [facility]
[2019-06-15 11:29] LABS: INR-International Normal Ratio 1.1; Prothrombin Time 14.1 SEC (12.0-14.7)
[2019-06-15] MEDS ORDERED: Heparin 10,000 UNITS/ 10 ML VIAL SLOW IVP SCH ×2 (11:45→15:33)
[2019-06-15] MEDS ORDERED: Heparin 25,000 units/D5W 500 ML IV SCH (11:45)
[2019-06-15 12:02] LABS: Bilirubin Negative (Negative); Blood, Urine Negative (Negative); Clarity Clear (Clear); Glucose, Urine (Dipstick) Normal (Negative); Leukocyte Negative Leu/uL (Negative); Nitrite Negative (Negative); Protein, Urine (Dipstick) Negative (Neg-Trace); Urobilinogen 3 mg/dL (Less than 2)
[2019-06-15] MEDS ORDERED: Heparin 25,000 units/D5W 500 ML ONE (12:05)
--- NOTE | 2019-06-15 13:06 | HP ---
PRIMARY CARE PHYSICIAN: Sybil Bloom DO REASON FOR ADMISSION: Extensive deep vein thrombosis, right lower extremity. 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 After stroke, the patient was recovering and he was able to ambulate with annemarie walker. The patient started noticing right lower extremity swelling yesterday and it was gradually getting worse and that is why he went to see primary care physician, and he was referred to [facility] and subsequently he was transferred to our hospital for rule out DVT. The patient reports that his symptoms started around knee area and then rapidly gotten worse to thigh and lower extremity, and his lower extremity on the right side gotten very tight. He has throbbing pain in his lower extremity as well. Today, in the emergency room, the patient had vascular ultrasound done, which showed extensive deep vein thrombosis involving common femoral, entire femoral, popliteal, posterior tibial, greater saphenous, profunda vein without any compressibility. The patient was started on heparin drip in the emergency room and subsequently, we decided to admit this patient in the hospital for further evaluation and treatment. REVIEW OF SYSTEMS: CONSTITUTIONAL: Negative for weight loss or gain, ability to conduct usual activities. SKIN: Negative for rash, itching. EYES: Negative for double vision, pain. ENT/MOUTH: Negative for nose bleeding, neck stiffness, pain, tenderness. CARDIOVASCULAR: Negative for palpitations, dyspnea on exertion, orthopnea. RESPIRATORY: Negative for shortness of breath, wheezing, cough, hemoptysis, fever or night sweats. GASTROINTESTINAL: Negative for poor appetite, abdominal pain, heartburn, nausea, vomiting, constipation, or diarrhea. GENITOURINARY: Negative for urgency, frequency, dysuria, nocturia. MUSCULOSKELETAL: Negative for pain, swelling. NEUROLOGIC/PSYCHIATRIC: Negative for anxiety, depression. ALLERGY/IMMUNOLOGIC: Negative for skin rash, bleeding tendency. Please see my HPI for pertinent positives and negatives. All other review of systems reviewed and negative except as mentioned in HPI. ALLERGIES: NO KNOWN DRUG ALLERGY. CURRENT HOME MEDICATION: 1. Fish oil one capsule daily. 2. Aspirin 81 mg daily. 3. Lexapro 10 mg daily. 4. Tricor 54 mg daily. 5. Lisinopril 10 mg daily. 6. Lipitor 40 mg daily. 7. Flexeril 5 mg p.r.n. 8. Melatonin 5 mg p.o. at bedtime. 9. Amlodipine 5 mg daily. 10. Plavix 75 mg daily. 11. Flomax 0.4 mg daily. 12. Proscar 5 mg p.o. daily. 13. Oxybutynin 10 mg daily. PAST MEDICAL HISTORY: Hypertension, history of SVT, prediabetes, stroke in March 2019, benign enlargement of prostate, dyslipidemia. PAST PSYCHIATRIC HISTORY: Anxiety and depression. PAST SURGICAL HISTORY: Cataract surgery, ablation for SVT. SOCIAL HISTORY: The patient is , lives at home with his . No history of tobacco, alcohol, or illicit drug abuse. FAMILY HISTORY: No positive family history of any blood clot disorder. No family history of coronary artery disease, stroke, or cancer. EMERGENCY ROOM COURSE: The patient is given heparin drip. PHYSICAL EXAMINATION: VITAL SIGNS: Currently, blood pressure 116/62, pulse 86, respiratory rate 20, temperature 98.1, saturation 99% on room air. Weight 89.9 kg. GENERAL: The patient is currently alert, awake, in no obvious acute distress. HEENT: Head, normocephalic and atraumatic. Eyes; pupils round and reactive to light. Extraocular muscle intact. ENT; oropharynx within normal limits. Moist mucous membranes. No oral lesion. No pharyngeal erythema. No exudate. NECK: Supple. No JVD. No meningeal signs of irritation. LUNGS: Clear to auscultation without any rhonchi or rales. CARDIAC: S1 and S2, regular. No murmur. No gallop. No rub. ABDOMEN: Soft, bowel sounds present, nontender, nondistended. No organomegaly. No mass. EXTREMITIES: Right lower extremity extensively swollen with erythema and tenderness. Right lower extremity temperature is slightly lower than left. Capillary refilling, normal. NEUROLOGIC: The patient does have mild residual weakness on the right upper and lower extremity compared to counterpart. SKIN: No skin rash. PSYCHIATRIC: Normal affect. LABORATORY STUDIES: EKG showing sinus rhythm. Ultrasound showing positive for acute deep vein thrombosis of entire right lower extremity. CBC; WBC 6.5, hemoglobin 12.7, platelet 227. INR 1.1, APTT 32.0. BMP; sodium 141, potassium 4.2, chloride 108, carbon dioxide 23, BUN 18, creatinine 1.13, glucose 117, calcium 9.5. LFT; AST 16, ALT 12, alkaline phosphatase 67, albumin 4.2. BNP 21.1. Urinalysis unremarkable. ASSESSMENT AND PLAN: 1. Extensive acute right lower extremity deep vein thrombosis. The patient has involvement of common femoral, entire femoral, popliteal, posterior tibial, greater saphenous, and profunda vein without any compressibility. This patient has extensive deep vein thrombosis. At this point, the patient will need evaluation for thrombectomy. We are going to continue with heparin drip. I have discussed with the patient about different treatment options. We will consult Vascular surgeon for evaluation. The patient will have bed rest. Question to Vascular surgeon is thrombectomy needed or not or IVC filter required or not. The patient will be closely monitored on telemetry floor. At this point, the patient does not have any history suggestive of PE. The patient is hemodynamically stable. 2. History of cerebrovascular accident with residual right-sided weakness. This patient had left periventricular infarct in March. He is recovering. We will continue low dose of aspirin, cholesterol medication with Lipitor 40 mg p.o. at bedtime, and Plavix 75 mg p.o. daily. 3. Hypertension. If blood pressure permits, then we will continue lisinopril 10 mg p.o. daily. 4. Benign enlargement of prostate. We will continue Proscar and Flomax as per home dosage. 5. Anxiety and depression. We will continue Lexapro 10 mg p.o. daily. 6. Deep venous thrombosis prophylaxis. The patient will be on full dose of heparin therapy for extensive DVT. 7. Gastrointestinal prophylaxis. Pepcid 20 mg p.o. b.i.d. CODE STATUS: The patient is full code. The patient's is surrogate decision maker. DISPOSITION PLAN: Based on clinical course, we are expecting the patient's stay in hospital more than 2 midnights. Plan of care discussed with the patient and at bedside. Job ID: [id number]
--- NOTE | 2019-06-15 13:46 | CON ---
DATE OF CONSULTATION: HISTORY OF PRESENT ILLNESS: This is a 74-year-old gentleman who suffered a left hemispheric CVA in March of this year with right-sided hemiparesis. He spent about a month in rehab. The patient noted some mild swelling of his right ankle until today or yesterday evening. He noticed it is swollen up to the knee and then today including the thigh. Venous ultrasound showed DVT of the common superficial and deep system. He spends about 2 hours out of his wheelchair a day and otherwise is in the wheelchair. He spends the usual number of hours in bed at night. PAST MEDICAL HISTORY: Otherwise includes: 1. Hypertension. 2. Dyslipidemia. 3. Prediabetes. 4. He also has a history of SVT ablation about 15 years ago. SOCIAL HISTORY: The patient has not smoked in about 30 years. He is and accompanied by his . PAST SURGICAL HISTORY: Includes: 1. Cataract extraction. 2. The above-noted ablation. MEDICATIONS: Listed in the chart, and of note, the patient was on aspirin and Plavix. PHYSICAL EXAMINATION: GENERAL: He is an alert and cooperative gentleman, in no distress. HEENT: Slight flattening of the face on the left side. NECK: He has no carotid bruits. LUNGS: Clear to auscultation anteriorly. CARDIAC: Regular rate and rhythm with no murmurs. ABDOMEN: Soft and nontender. EXTREMITIES: His right thigh is firm as is his calf compared to the left side. There is perhaps some mild adams complexion to the right leg. He has pitting edema at the ankle with a palpable posterior tibial pulse on the right. DIAGNOSTIC STUDIES: His venous ultrasound report was reviewed. DISCUSSION: At this time, I think systemic heparinization and bedrest for a couple of days and then switching him to oral anticoagulation is appropriate. At this time, he does not really have any indication for an IVC filter and probably no indication at this time for percutaneous thrombolytic therapy. Would recommend elevation of his leg. At the time of my visit, the heparin drip had just been started. Job ID: [id number]
[2019-06-15 14:39] VITALS: BMI 29.2
[2019-06-15] MEDS ORDERED: Cepastat Lozenges 1 LOZ PO PRN (15:33)
[2019-06-15] MEDS ORDERED: Zolpidem Tartrate 5 MG TAB PO PRN (15:33)
[2019-06-15] MEDS ORDERED: Heparin 25,000 units/D5W 500 ML IVPB SCH (15:33)
[2019-06-15] MEDS ORDERED: Bisacodyl 10 MG SUPP PR PRN (15:33)
[2019-06-15] MEDS ORDERED: Diabetic Tussin 200 MG/10 ML UDCUP PO PRN (15:33)
[2019-06-15] MEDS ORDERED: Senokot S 8.6-50 MG TAB PO PRN (15:33)
[2019-06-15] MEDS ORDERED: hydrALAZINE 20 MG/ML VIAL SLOW IVP PRN (15:33)
[2019-06-15] MEDS ORDERED: Calcium Carbonate 500 MG ChewTAB PO PRN (15:33)
[2019-06-15] MEDS ORDERED: HYDROcodone/Acetaminophen 5/325 mg Tablet PO PRN (15:33)
[2019-06-15] MEDS ORDERED: Sodium Chloride 0.65% Nasal 44 ML BOT EA NARE PRN (15:33)
[2019-06-15] MEDS ORDERED: Loperamide HCl 2 MG CAP PO PRN (15:33)
[2019-06-15] MEDS ORDERED: Artificial Tears 18 DROP/0.9 ML EA EYE PRN (15:33)
[2019-06-15] MEDS ORDERED: Cyclobenzaprine 10 MG TAB PO PRN (15:52)
[2019-06-15] MEDS: Loratadine 10 MG TAB PO PRN (18:41)
[2019-06-15] MEDS: Famotidine 20 MG TAB PO SCH (20:14)
[2019-06-15] MEDS: Melatonin 3 MG TAB PO SCH (20:14)
[2019-06-15] MEDS: Atorvastatin Calcium 40 MG TAB PO SCH (20:14)
[2019-06-16 02:25] LABS: Hemoglobin 12.5 g/dL (14.0-18.0); Platelet Count 214 thou/uL (130-400)
[2019-06-16 02:32] LABS: INR-International Normal Ratio 1.1
[2019-06-16 02:33] LABS: D-Dimer Test 2.8 *mcg/mL (0.27-0.43)
[2019-06-16 02:35] LABS: PTT 122.7 SEC (22.9-36.1)
[2019-06-16] MEDS: Aspirin 81 mg Enteric Coated Tablet PO SCH (09:08)
[2019-06-16] MEDS: Famotidine 20 MG TAB PO SCH ×2 (09:08→20:21)
[2019-06-16] MEDS: Escitalopram Oxalate 10 mg Tablet PO SCH (09:08)
[2019-06-16] MEDS: Amlodipine 5 MG TAB PO SCH (09:08)
[2019-06-16] MEDS: Tamsulosin HCl 0.4 MG CAP PO SCH (09:09)
[2019-06-16] MEDS: Finasteride 5 MG TAB PO SCH (09:09)
[2019-06-16] MEDS: Polyethylene Glycol 3350 17 GM Packet PO SCH (09:09)
[2019-06-16] MEDS: Lisinopril 10 MG TAB PO SCH (09:09)
[2019-06-16] MEDS: Fenofibrate 48 MG TAB PO SCH (09:09)
[2019-06-16] MEDS: Oxybutynin 5 MG TAB PO SCH (09:09)
[2019-06-16] MEDS: Acetaminophen 325 MG TAB PO PRN (09:10)
[2019-06-16] MEDS: Clopidogrel Bisulfate 75 MG TAB PO SCH (09:52)
[2019-06-16] MEDS ORDERED: Heparin 25,000 units/D5W 500 ML IVPB SCH (10:45)
[2019-06-16] MEDS: Loratadine 10 MG TAB PO PRN (11:40)
--- NOTE | 2019-06-16 14:59 | PDOC.HOSPP ---
- Subjective Encounter Date: 06/16/19 Encounter Time: 10:35 Subjective: Patient seen and examined. No new complaints. No overnight events - Objective Vital Signs & Weight: Vital Signs (12 hours) Temp Pulse Resp BP BP Pulse Ox 06/16/19 11:30 98.9 F 69 18 126/61 97 06/16/19 09:08 73 131/68 06/16/19 07:54 98.6 F 67 18 117/60 94 L 06/16/19 04:00 98.6 F 80 18 119/59 L 98 Weight Weight 209 lb 3 oz I&O: 06/15/19 06/16/19 06/17/19 06:59 06:59 06:59 Intake Total 707 Output Total 850 Balance -143 Result Diagrams: 06/16/19 02:08 06/16/19 02:08 EKG Reviewed by me: Yes Hospitalist ROS - Review of Systems ENT: denies: ear pain, ear discharge, nose pain, nose discharge, nose congestion , mouth pain, mouth swelling, throat pain, throat swelling, other Respiratory: denies: cough, dry, shortness of breath, hemoptysis, SOB with excertion, pleuritic pain, sputum, wheezing, other Cardiovascular: denies: chest pain, palpitations, orthopnea, paroxysmal noc. dyspnea, edema, light headedness, other Gastrointestinal: denies: nausea, vomiting, abdominal pain, diarrhea, constipation, melena, hematochezia, other Genitourinary: denies: dysuria, frequency, incontinence, hematuria, retention, other Musculoskeletal: denies: neck pain, shoulder pain, arm pain, back pain, hand pain, leg pain, foot pain, other - Medication Medications: Active Medications Generic Name Dose Route Start Last Admin Trade Name Freq PRN Reason Stop Dose Admin Acetaminophen 650 mg 06/15/19 15:33 06/16/19 09:10 Tylenol PO 650 mg Q4H PRN Administration Headache/Fever/Mild Pain (1-3) Amlodipine Besylate 5 mg 06/16/19 09:00 06/16/19 09:08 Norvasc PO 5 mg DAILY CHARLIE Administration Aspirin 81 mg 06/16/19 09:00 06/16/19 09:08 Ecotrin PO 81 mg DAILY CHARLIE Administration Atorvastatin Calcium 40 mg 06/15/19 21:00 02/26/20 20:14 Lipitor PO 40 mg HS CHARLIE Administration Clopidogrel Bisulfate 75 mg 06/16/19 09:00 06/16/19 09:52 Plavix PO 75 mg DAILY CHARLIE Administration Escitalopram Oxalate 10 mg 06/16/19 09:00 06/16/19 09:08 Lexapro PO 10 mg DAILY CHARLIE Administration Famotidine 20 mg 06/15/19 21:00 06/16/19 09:08 Pepcid PO 20 mg BID CHARLIE Administration Fenofibrate 48 mg 06/16/19 09:00 06/16/19 09:09 Tricor PO 48 mg DAILY CHARLIE Administration Finasteride 5 mg 06/16/19 09:00 06/16/19 09:09 Proscar PO 5 mg DAILY CHARLIE Administration Heparin Sodium/Dextrose 500 mls @ 0 mls/hr 06/16/19 10:45 06/16/19 11:34 Heparin 25,000 Units/D5w 500 Ml IVPB 500 mls INF CHARLIE Administration Protocol Per Protocol Lisinopril 10 mg 06/16/19 09:00 06/16/19 09:09 Zestril PO 10 mg DAILY CHARLIE Administration Loratadine 10 mg 06/15/19 15:33 06/16/19 11:40 Claritin PO 10 mg DAILYPRN PRN Administration Sinus Symptoms Melatonin 6 mg 06/15/19 21:00 06/15/19 20:14 Melatonin PO 6 mg HS CHARLIE Administration Oxybutynin Chloride 10 mg 06/16/19 09:00 06/16/19 09:09 Ditropan PO 10 mg DAILY CHARLIE Administration Polyethylene Glycol 17 gm 06/16/19 09:00 06/16/19 09:09 Miralax PO 17 gm DAILY CHARLIE Administration Tamsulosin HCl 0.4 mg 06/16/19 09:00 06/16/19 09:09 Flomax PO 0.4 mg DAILY CHARLIE Administration - Exam General Appearance: NAD, awake alert Eye: PERRL, anicteric sclera ENT: normocephalic atraumatic, no oropharyngeal lesions Neck: supple, symmetric, no JVD, no thyromegaly Heart: RRR, no murmur, no gallops, no rubs Respiratory: CTAB, no wheezes, no rales, no ronchi Gastrointestinal: soft, non-tender, non-distended, normal bowel sounds Extremities - other findings: swelling on righ leg reducing Skin: normal turgor, no lesions Neurological: no focal deficits Musculoskeletal: normal tone, normal strength Psychiatric: normal affect, normal behavior Hosp A/P (1) DVT (deep venous thrombosis) Code(s): I82.409 - ACUTE EMBOLISM AND THOMBOS UNSP DEEP VN UNSP LOWER EXTREMITY Status: Acute Qualifiers: DVT location: lower extremity Chronicity: acute Laterality: right (2) CVA (cerebral vascular accident) Code(s): I63.9 - CEREBRAL INFARCTION, UNSPECIFIED Status: Chronic Qualifiers: Laterality of affected vessel: left (3) HLD (hyperlipidemia) Code(s): E78.5 - HYPERLIPIDEMIA, UNSPECIFIED Status: Chronic (4) HTN (hypertension) Code(s): I10 - ESSENTIAL (PRIMARY) HYPERTENSION Status: Chronic Qualifiers: Hypertension type: essential hypertension Qualified Code(s): I10 - Essential (primary) hypertension - Plan old records reviewed/req, plan discussed w/ family pt has improvement in swelling continue heparin drip today tomorrow will change to oral anticoagulant with elliquis medication reviewed and continue to provide symptomatic treatment discussed with family bed rest today
[2019-06-16] MEDS: Melatonin 3 MG TAB PO SCH (20:22)
[2019-06-16] MEDS: Atorvastatin Calcium 40 MG TAB PO SCH (20:22)
[2019-06-16] MEDS: guaiFENesin ER 600 MG TAB PO PRN (20:22)
[2019-06-17 04:47] LABS: #Eosinphils 0.2 thou/uL (0.0-0.7); #Lymphocytes 1.2 thou/uL (1.20-3.40); #Monocytes 0.6 thou/uL (0.11-0.59); #Neutrophils 3.7 thou/uL (1.40-6.50); %Basophils 0.3 % (0.0-1.0); %Eosinophils 4.2 % (0.0-10.0); %Lymphocytes 20.9 % (21.0-51.0); %Monocytes 9.6 % (0.0-10.0); Hemoglobin 12.5 g/dL (14.0-18.0); Mean Corpuscular HGB CONC 35.2 g/dL (32.0-36.0); Mean Corpuscular Hemoglobin 32.4 pg (27.0-31.0); Mean Platelet Volume 7.4 fL (7.4-10.4); Platelet Count 214 thou/uL (130-400); RBC Distribution Width 12.5 % (11.5-14.5); Red Blood Cell (RBC) Count 3.87 mill/uL (4.70-6.10); White Blood Cell (WBC) Count 5.8 thou/uL (4.8-10.8)
[2019-06-17 04:49] LABS: INR-International Normal Ratio 1.1; Prothrombin Time 13.7 SEC (12.0-14.7)
[2019-06-17 04:50] LABS: PTT 81.9 SEC (22.9-36.1)
[2019-06-17 05:04] LABS: ALT (SGPT) 8 U/L (8-55); AST (SGOT) 12 U/L (5-34); Albumin 3.6 g/dL (3.4-4.8); Alkaline Phosphatase 53 U/L (40-110); Anion Gap 14 mmol/L (10-20); BUN (Urea Nitrogen) 13 mg/dL (8.4-25.7); Bilirubin, Total 0.9 mg/dL (0.2-1.2); Calc. Creatinine Clearance 92 mL/min (70-130); Calcium 8.8 mg/dL (7.8-10.44); Carbon Dioxide 21 mmol/L (23-31); Chloride 108 mmol/L (98-107); Estimated GFR-MDRD 76; Globulin 2.6 g/dL (2.4-3.5); Glucose 128 mg/dL (83-110); Potassium 3.6 mmol/L (3.5-5.1); Protein, Total 6.2 g/dL (5.8-8.1); Sodium 139 mmol/L (136-145)
[2019-06-17] MEDS: Acetaminophen 325 MG TAB PO PRN ×2 (05:56→20:24)
[2019-06-17] MEDS: Apixaban 5 MG TAB PO SCH ×2 (08:52→20:25)
[2019-06-17] MEDS: Tamsulosin HCl 0.4 MG CAP PO SCH (08:53)
[2019-06-17] MEDS: Clopidogrel Bisulfate 75 MG TAB PO SCH (08:53)
[2019-06-17] MEDS: Oxybutynin 5 MG TAB PO SCH (08:53)
[2019-06-17] MEDS: Escitalopram Oxalate 10 mg Tablet PO SCH (08:53)
[2019-06-17] MEDS: Finasteride 5 MG TAB PO SCH (08:54)
[2019-06-17] MEDS: Aspirin 81 mg Enteric Coated Tablet PO SCH (08:54)
[2019-06-17] MEDS: Lisinopril 10 MG TAB PO SCH (08:54)
[2019-06-17] MEDS: Famotidine 20 MG TAB PO SCH ×2 (08:54→20:24)
[2019-06-17] MEDS: Amlodipine 5 MG TAB PO SCH (08:54)
[2019-06-17] MEDS: Fenofibrate 48 MG TAB PO SCH (08:54)
[2019-06-17] MEDS: Polyethylene Glycol 3350 17 GM Packet PO SCH (08:56)
[2019-06-17] MEDS: guaiFENesin ER 600 MG TAB PO PRN ×2 (09:03→20:24)
--- NOTE | 2019-06-17 13:25 | PDOC.HOSPP ---
- Subjective Encounter Date: 06/17/19 Encounter Time: 09:00 Subjective: Patient seen and examined. No new complaints. No overnight events - Objective Vital Signs & Weight: Vital Signs (12 hours) Temp Pulse Resp BP Pulse Ox 06/17/19 11:42 98.2 F 65 16 104/57 L 97 06/17/19 07:54 97.9 F 65 18 122/64 97 06/17/19 03:53 98.6 F 64 18 104/55 L 96 Weight Weight 209 lb I&O: 06/16/19 06/17/19 06/18/19 06:59 06:59 06:59 Intake Total 707 1840 Output Total 850 2009 Balance -143 -170 Result Diagrams: 06/17/19 04:16 06/17/19 04:16 Hospitalist ROS - Review of Systems ENT: denies: ear pain, ear discharge, nose pain, nose discharge, nose congestion , mouth pain, mouth swelling, throat pain, throat swelling, other Respiratory: denies: cough, dry, shortness of breath, hemoptysis, SOB with excertion, pleuritic pain, sputum, wheezing, other Cardiovascular: denies: chest pain, palpitations, orthopnea, paroxysmal noc. dyspnea, edema, light headedness, other Gastrointestinal: denies: nausea, vomiting, abdominal pain, diarrhea, constipation, melena, hematochezia, other Genitourinary: denies: dysuria, frequency, incontinence, hematuria, retention, other Musculoskeletal: denies: neck pain, shoulder pain, arm pain, back pain, hand pain, leg pain, foot pain, other - Medication Medications: Active Medications Generic Name Dose Route Start Last Admin Trade Name Dominguezq PRN Reason Stop Dose Admin Acetaminophen 650 mg 06/15/19 15:33 06/17/19 05:56 Tylenol PO 650 mg Q4H PRN Administration Headache/Fever/Mild Pain (1-3) Amlodipine Besylate 5 mg 06/16/19 09:00 06/17/19 08:54 Norvasc PO 5 mg DAILY CHARLIE Administration Apixaban 10 mg 06/17/19 09:00 06/17/19 08:52 Eliquis PO 10 mg BID CHARLIE Administration Aspirin 81 mg 06/16/19 09:00 06/17/19 08:54 Ecotrin PO 81 mg DAILY CHARLIE Administration Atorvastatin Calcium 40 mg 06/15/19 21:00 06/16/19 20:22 Lipitor PO 40 mg HS CHARLIE Administration Clopidogrel Bisulfate 75 mg 06/16/19 09:00 06/17/19 08:53 Plavix PO 75 mg DAILY CHARLIE Administration Escitalopram Oxalate 10 mg 06/16/19 09:00 06/17/19 08:53 Lexapro PO 10 mg DAILY CHARLIE Administration Famotidine 20 mg 06/15/19 21:00 06/17/19 08:54 Pepcid PO 20 mg BID CHARLIE Administration Fenofibrate 48 mg 06/16/19 09:00 06/17/19 08:54 Tricor PO 48 mg DAILY CHARLIE Administration Finasteride 5 mg 06/16/19 09:00 06/17/19 08:54 Proscar PO 5 mg DAILY CHARLIE Administration Guaifenesin 600 mg 06/16/19 19:59 06/17/19 09:03 Mucinex PO 600 mg Q12H PRN Administration . Lisinopril 10 mg 06/16/19 09:00 06/17/19 08:54 Zestril PO 10 mg DAILY CHARLIE Administration Loratadine 10 mg 06/15/19 15:33 06/16/19 11:40 Claritin PO 10 mg DAILYPRN PRN Administration Sinus Symptoms Melatonin 6 mg 06/15/19 21:00 06/16/19 20:22 Melatonin PO 6 mg HS [facility] Administration Oxybutynin Chloride 10 mg 06/16/19 09:00 06/17/19 08:53 Ditropan PO 10 mg DAILY CHARLIE Administration Polyethylene Glycol 17 gm 06/16/19 09:00 06/17/19 08:56 Miralax PO Not Given DAILY CHARLIE Senna/Docusate Sodium 2 tab 06/15/19 15:33 06/16/19 20:21 Senokot S PO 2 tab BIDPRN PRN Administration Constipation Sodium Chloride 10 ml 06/17/19 09:00 06/17/19 08:54 Flush - Normal Saline IVF 10 ml Q12HR CHARLIE Administration Tamsulosin HCl 0.4 mg 06/16/19 09:00 06/17/19 08:53 Flomax PO 0.4 mg DAILY CHARLIE Administration - Exam General Appearance: NAD, awake alert Eye: PERRL, anicteric sclera ENT: normocephalic atraumatic, no oropharyngeal lesions Neck: supple, symmetric, no JVD, no thyromegaly Heart: RRR, no murmur, no gallops, no rubs, normal peripheral pulses Respiratory: CTAB, no wheezes, no rales, no ronchi Gastrointestinal: soft, non-tender, non-distended, normal bowel sounds Extremities: no cyanosis, no clubbing, 1+ LE edema Skin: normal turgor, no lesions Neurological - other findings: residual weakness on right side Musculoskeletal: normal tone, normal strength Psychiatric: normal affect, normal behavior Hosp A/P (1) DVT (deep venous thrombosis) Code(s): I82.409 - ACUTE EMBOLISM AND THOMBOS UNSP DEEP VN UNSP LOWER EXTREMITY Status: Acute Qualifiers: DVT location: lower extremity Chronicity: acute Laterality: right (2) CVA (cerebral vascular accident) Code(s): I63.9 - CEREBRAL INFARCTION, UNSPECIFIED Status: Chronic Qualifiers: Laterality of affected vessel: left (3) HLD (hyperlipidemia) Code(s): E78.5 - HYPERLIPIDEMIA, UNSPECIFIED Status: Chronic (4) HTN (hypertension) Code(s): I10 - ESSENTIAL (PRIMARY) HYPERTENSION Status: Chronic Qualifiers: Hypertension type: essential hypertension Qualified Code(s): I10 - Essential (primary) hypertension - Plan old records reviewed/req, plan discussed w/ family, PT/OT pt has improvement in swelling continue heparin drip today tomorrow will change to oral anticoagulant with elliquis medication reviewed and continue to provide symptomatic treatment discussed with family bed rest today 06/17/19 today will start PT/OT as tolerated will DC heparin drip start elliquis 10 mg po bid medication side effect and advantage and disadvantage discussed medication reviewed and continue to provide supportive care
[2019-06-17] MEDS: Atorvastatin Calcium 40 MG TAB PO SCH (20:24)
[2019-06-17] MEDS: Melatonin 3 MG TAB PO SCH (20:24)
[2019-06-18 04:36] LABS: Hemoglobin 12.4 g/dL (14.0-18.0); Platelet Count 230 thou/uL (130-400)
[2019-06-18 04:40] LABS: INR-International Normal Ratio 1.3; Prothrombin Time 16.4 SEC (12.0-14.7)
[2019-06-18] MEDS: Famotidine 20 MG TAB PO SCH (08:29)
[2019-06-18] MEDS: Clopidogrel Bisulfate 75 MG TAB PO SCH (08:29)
[2019-06-18] MEDS: Aspirin 81 mg Enteric Coated Tablet PO SCH (08:29)
[2019-06-18] MEDS: Apixaban 5 MG TAB PO SCH (08:29)
[2019-06-18] MEDS: Fenofibrate 48 MG TAB PO SCH (08:29)
[2019-06-18] MEDS: Oxybutynin 5 MG TAB PO SCH (08:29)
[2019-06-18] MEDS: Finasteride 5 MG TAB PO SCH (08:30)
[2019-06-18] MEDS: Escitalopram Oxalate 10 mg Tablet PO SCH (08:30)
[2019-06-18] MEDS: Amlodipine 5 MG TAB PO SCH (08:30)
[2019-06-18] MEDS: Tamsulosin HCl 0.4 MG CAP PO SCH (08:30)
[2019-06-18] MEDS: Lisinopril 10 MG TAB PO SCH (08:30)
[2019-06-18] MEDS: Polyethylene Glycol 3350 17 GM Packet PO SCH (08:33)
[2019-06-18 16:01] VITALS: BP 119/57; TEMP 99.4
--- NOTE | 2019-06-19 10:30 | DIS ---
DATE OF ADMISSION: 06/15/2019 DATE OF DISCHARGE: 06/18/2019 DISCHARGE DISPOSITION: Home. FOLLOWUP: 1. Follow up with primary care physician, Dr. Bloom in 1 week. 2. Follow up with Neurology, Dr. Bazan and cardiovascular, Dr. Merida as scheduled. ALLERGIES: NO KNOWN DRUG ALLERGIES. DISCHARGE MEDICATIONS: 1. Aspirin 325 mg daily. 2. Eliquis 10 mg twice daily for 7 days and then 5 mg twice a day. 3. All other home medications were left unchanged. 4. Plavix was discontinued. The patient was seen on the day of discharge. Denies any new complaints. No chest pain, shortness of breath, palpitations reported. INPATIENT SALT WASHER: Cardiovascular, Dr. Merida. BRIEF HOSPITAL COURSE: The patient is a 74-year-old male with CVA in March, presented to the emergency room with extensive right lower extremity swelling. His workup in the emergency room was consistent with extensive right lower extremity DVT. He was evaluated by cardiovascular, Dr. Merida, who recommended to continue anticoagulation. He was placed on heparin drip that was transitioned to Eliquis. Right lower extremity swelling is slowly improving. The patient was on aspirin and Plavix prior to this hospitalization. I discussed with neurologist station installation supervisor, Dr. Dayami Cardozo. She recommended to increase aspirin to 325, and to discontinue Plavix for now while on anticoagulation. The patient was advised to resume aspirin and Plavix once he completes anticoagulation. He will also discuss with Dr. Bazan next week. He understands the risk associated with anticoagulation. FINAL DIAGNOSES: 1. Extensive right lower extremity deep vein thrombosis. 2. History of cerebrovascular accident in March of 2019 with residual right-sided weakness. 3. Hypertension. 4. Benign prostatic hypertrophy. 5. Anxiety. 6. Depression, mild, stable. 7. Diet-controlled diabetes mellitus type 2. 8. Chronic low back pain. 9. Chronic kidney disease, stage 2. 10. Chronic anemia. The patient and the family understand the plan of care. Job ID: [id number]
== END 2019-06-18 18:35 | disposition home or self-care (01) | DRG 300 ==
LOC: ERS 09:49 → 2NO 11:44
PROVIDERS: ADMIT Internal Medicine; ATTEND Internal Medicine
DX: I82.411 Acute embolism and thrombosis of right femoral vein (principal); I69.351 Hemiplegia and hemiparesis following cerebral infarction affecting right dominant side; F33.0 Major depressive disorder, recurrent, mild; N40.0 Benign prostatic hyperplasia without lower urinary tract symptoms; F41.9 Anxiety disorder, unspecified; I12.9 Hypertensive chronic kidney disease with stage 1 through stage 4 chronic kidney disease, or unspecified chronic kidney disease; E11.22 Type 2 diabetes mellitus with diabetic chronic kidney disease; N18.2 Chronic kidney disease, stage 2 (mild); D63.1 Anemia in chronic kidney disease; I82.431 Acute embolism and thrombosis of right popliteal vein; I82.441 Acute embolism and thrombosis of right tibial vein; I82.491 Acute embolism and thrombosis of other specified deep vein of right lower extremity; E78.5 Hyperlipidemia, unspecified; Z98.49 Cataract extraction status, unspecified eye
CPT/HCPCS: 36415; 80053; 81003; 82565; 85014; 85018; 85025; 85049; 85379; 85610; 85730; 96365; 96376; J1644

== ENCOUNTER 2019-07-08 10:46 | Outpatient (CLI) | payer MEDICARE ==
--- NOTE | 2019-07-08 13:11 | RAD ---
ABDOMEN 1 VIEW: Date: 07/08/2019 HISTORY: Benign prostate hypertrophy with lower urinary tract symptoms. FINDINGS: No evidence for overt renal or calculi. No bowel obstruction. IMPRESSION: Unremarkable KUB. No overt calculus. POS: [facility]
--- NOTE | 2019-07-08 14:22 | ULT ---
RENAL ULTRASOUND: HISTORY: BPH. FINDINGS: The right kidney measures 11 cm in length. The left kidney measures 12 cm in length. Two right renal cysts are seen. There is a 2 cm cyst upper pole and an exophytic cyst medial lower p ole measuring 1.5 cm. No mass or hydronephrosis. The urinary bladder is mildly distended. There is urinary bladder wall thickening with evidence of p rostatic hypertrophy. IMPRESSION: 1. Two small right renal cysts. 2. Urinary bladder wall thickening. POS: [facility]
== END 2019-07-08 10:47 | disposition home or self-care (01) ==
LOC: BICULT 10:46
PROVIDERS: ATTEND Urology
DX: N40.1 Benign prostatic hyperplasia with lower urinary tract symptoms (principal); Z87.442 Personal history of urinary calculi; N28.1 Cyst of kidney, acquired; N32.89 Other specified disorders of bladder
CPT/HCPCS: 74018; 76770

== ENCOUNTER 2019-08-02 09:48 | Outpatient (CLI) | payer MEDICARE ==
[2019-08-02] MEDS ORDERED: Iopamidol 370 76% 100 ML VIAL ONE (11:38)
--- NOTE | 2019-08-02 12:36 | CT ---
CT ABDOMEN AND PELVIS WITH AND WITHOUT CONTRAST: Date: )08/02/2019 Postcontrast images obtained in portal venous and delayed venous phase. INDICATION: Gross hematuria. No comparison studies. FINDINGS: Lung bases clear. Liver, spleen, and pancreas appear unremarkable. Adrenal glands normal. Review of kidneys show an exophytic cyst from the right renal cortex measuring 1.6 cm. There is a 1.0 cm cyst anterior right renal cortex. There are bilateral parapelvic cysts with the largest seen on t he left measuring approximately 2.0 cm. Both kidneys show symmetric function and enhancement. No enhancing lesion or mass identified. Review of the precontrast images shows a tiny, nonobstructing calculus in the upper pole collecting structur es of the right kidney measuring 2.0 mm. There is cortical scarring in the lateral right kidney. Urinary bladder is only mildly distended, but shows evidence of bladder wall thickening. There is pro static hypertrophy which indents the floor of the bladder. Delayed images show secretion into the collecting structures. Collecting structures appear unremarkab le, although there is compression of the upper collecting structures bilaterally due to the parapelvi c cysts. Bowel loops unremarkable. Aorta normal caliber. Osseous structures unremarkable. IMPRESSION: 1. The urinary bladder shows bladder wall thickening. There is prostatic hypertrophy compressing the floor of the bladder. Consider cystoscopy to further evaluate. 2. Bilateral renal cysts as described above and cortical scarring in the right renal cortex. 3. A tiny nonobstructing calculus measuring in the 2.0 mm range in the upper pole collecting structu res of the right kidney. POS: [facility]
== END 2019-08-02 09:49 | disposition home or self-care (01) ==
LOC: BICCT 09:48
PROVIDERS: ATTEND Urology
DX: R31.0 Gross hematuria (principal); N40.0 Benign prostatic hyperplasia without lower urinary tract symptoms; N28.1 Cyst of kidney, acquired; N28.89 Other specified disorders of kidney and ureter; N20.0 Calculus of kidney; N32.89 Other specified disorders of bladder
CPT/HCPCS: 74178